=== PATIENT | male | born 1950 | race Caucasian/White ===

== ENCOUNTER 2019-10-07 08:33 | Inpatient (IN) | payer BC, MEDICARE ==
[~2019-10-07] VITALS: Ht 185.4 cm; Wt 90.9 kg
[2019-10-07 09:02] LABS: BASOPHILS # (AUTO) 0.1 X10'3 (0-0.2); EOSINOPHILS # (AUTO) 0.2 X10'3 (0-0.9); EOSINOPHILS % (AUTO) 2.4 % (0-6); HEMATOCRIT 45.2 % (42.0-52.0); HEMOGLOBIN 15.7 g/dl (14.0-17.9); LYMPHOCYTES # (AUTO) 1.5 X10'3 (1.1-4.8); LYMPHOCYTES % (AUTO) 23.6 % (21-51); MEAN CORPUSCULAR HEMOGLOBIN 32.2 PG (27.0-31.0); MEAN CORPUSCULAR HGB CONC 34.8 g/dL (33.0-36.5); MEAN CORPUSCULAR VOLUME 92.6 FL (78-98); MEAN PLATELET VOLUME 7.8 FL (7.4-10.4); MONOCYTES # (AUTO) 0.5 X10'3 (0-0.9); MONOCYTES % (AUTO) 8.1 % (2-12); NEUTROPHILS # (AUTO) 4.1 X10'3 (1.8-7.7); NEUTROPHILS % (AUTO) 64.9 % (42-75); PLATELET COUNT 256 X10'3 (140-440); RED BLOOD COUNT 4.89 X10'6 (4.70-6.10); RED CELL DISTRIBUTION WIDTH 13.4 % (11.5-14.5); WHITE BLOOD COUNT 6.3 X10'3 (4.5-11.0)
[2019-10-07] MEDS ORDERED: aspirin 325mg tablet PO ONE (09:10)
[2019-10-07 09:20] LABS: ALANINE AMINOTRANSFERASE 31 U/L (12-78); ALBUMIN 4.3 G/DL (3.4-5.0); ALKALINE PHOSPHATASE 139 IU/L (46-116); ANION GAP 11 (8-16); ASPARTATE AMINO TRANSFERASE 22 U/L (10-37); BILIRUBIN,TOTAL 0.4 MG/DL (0.1-1.0); BLOOD UREA NITROGEN 16 MG/DL (7-18); BUN/CREATININE RATIO 14.2 (5.4-32.0); CALCIUM 9.3 MG/DL (8.5-10.1); CHLORIDE 97 MMOL/L (99-107); CREATININE 1.13 MG/DL (0.60-1.10); GLUCOSE 343 MG/DL (70-104); POTASSIUM 4.1 MMOL/L (3.5-5.1); SODIUM 133 MMOL/L (135-145); TOTAL CARBON DIOXIDE 25.4 MMOL/L (24-32); TOTAL PROTEIN 8.8 G/DL (6.4-8.2); eGFR 65 ML/MIN
[2019-10-07 09:22] LABS: TROPONIN I < 0.04 NG/ML (0.0-0.05)
[2019-10-07] MEDS ORDERED: iohexol 350MG/ML 100ml bottle IV ONE (09:33)
[2019-10-07 09:50] LABS: ETHANOL < 0.010 GM/DL (0.0-0.010)
--- NOTE | 2019-10-07 09:52 | NUR ---
stefani wolfe rn for break; pt just back from ct.
--- NOTE | 2019-10-07 10:20 | NUR ---
Neuro tele consult in progress
--- NOTE | 2019-10-07 10:31 | NUR ---
Anibal forbes in [facility] - 10/07/19 at 1032 by ILIANA STROKE ALERT CALLED OF BY AT [phone]
--- NOTE | 2019-10-07 10:32 | NUR ---
THEODORA ALERT CALLED OFF BY AT [phone]
[2019-10-07 10:50] LABS: CLARITY,URINE CLEAR (Clear); COLOR,URINE YELLOW (Yellow); GLUCOSE, URINE >=1000 mg/dl (Neg); KETONES,URINE NEGATIVE (Neg); LEUKOCYTE ESTERASE ,URINE NEGATIVE (Neg); NITRITES, URINE NEGATIVE (Neg); OCCULT BLOOD,URINE NEGATIVE (Neg); PH,URINE 5.5 (4.8-8.0); PROTEIN,URINE NEGATIVE (Neg); UROBILINOGEN,URINE 0.2 E.U/dL (0.2-1.0)
[2019-10-07 10:56] LABS: URINE AMPHETAMINE SCREEN NEGATIVE (Neg); URINE BARBITUATE SCREEN NEGATIVE (Neg); URINE BENZODIAZEPINES SCREEN NEGATIVE (Neg); URINE CANNABINOID SCREEN NEGATIVE (Neg); URINE COCAINE SCREEN NEGATIVE (Neg); URINE METHADONE SCREEN NEGATIVE (Neg); URINE OPIATE SCREEN NEGATIVE (Neg); URINE PHENCYCLIDINE SCREEN NEGATIVE (Neg)
[2019-10-07 10:58] LABS: UA COLLECTION TYPE CLN CATCH MIDSTREAM
[2019-10-07 11:10] LABS: BACTERIA,URINE FEW /HPF (Neg); RBC,URINE NONE SEEN /HPF (0-2); SQUAMOUS EPITHELIAL CELL,UR FEW /LPF (FEW); WBC,URINE 0-4 /HPF (0-4)
[2019-10-07] MEDS ORDERED: magnesium 4gm in 100ml NS 100 ML IV PRN (11:30)
[2019-10-07] MEDS ORDERED: dextrose ORAL solution 15 GM/59 ML bottle PO PRN ×2 (11:30)
[2019-10-07] MEDS ORDERED: dextrose 50%-water 50ml dispensing syringe IV PRN ×2 (11:30)
[2019-10-07] MEDS ORDERED: potassium CL 10mEq/100ml bag 100 ML IV PRN ×2 (11:30)
[2019-10-07] MEDS ORDERED: ondansetron/PF 4mg/2ml inj IV PRN (11:30)
[2019-10-07] MEDS ORDERED: magnesium Cl slow-release 64mg tablet PO PRN (11:30)
[2019-10-07] MEDS ORDERED: MESSAGE TO PHARMACY PO ONE (11:30)
[2019-10-07] MEDS ORDERED: potassium Cl 20 mEq SR tablet PO PRN ×2 (11:30)
[2019-10-07] MEDS ORDERED: glucagon, human recombinant 1mg kit SUBCUT PRN (11:30)
[2019-10-07] MEDS ORDERED: acetaminophen 325mg tablet PO PRN (11:30)
[2019-10-07] MEDS ORDERED: magnesium 2GM in 50ml NS 50 ML IV PRN (11:30)
[2019-10-07] MEDS ORDERED: NO HOME MEDS (12:24)
--- NOTE | 2019-10-07 13:00 | NUR ---
pressure dispatcher took report, pt arrived at 1310, tucked in, vitals, assessment
[2019-10-07 14:15] VITALS: BP 175/134
--- NOTE | 2019-10-07 14:50 | NUR ---
DM Consult: Pt meets hyperglycemia protocol Glu 343 on admit w/ A1C 10.0. Pt has no hx DM in EMR. REAGAN liu/w RN who reports pt has not seen MD in 10 years and is not aware of new DM DX. Pending official DM DX review by MD; unable to provide written/verbal new DM ed until diagnosis reviewed by MD. REAGAN liu/ingris RN who is aware. Pt admit w/ possible TIA though could be Glu complications as well per RN today. Placed on carb controlled/heart healthy diet pending PO hx given new admit and no lipid panel at this time. Pt will need thorough new DM ed once stable and aware of new DX prior to discharge. Will continue to monitor. Rec: 1. continue carb controlled/heart healthy diet 2. monitor for ONS needs 3. bowel care per rx 4. scaled wt 5. Written/verbal new DM ed once stable s/p official new DM DX review by Addendum: 10/07/19 at [address] Amended: Links added.
--- NOTE | 2019-10-07 18:23 | NUR ---
Problems reprioritized. Patient report given, questions answered & plan of care reviewed with Julissa Noyola
[2019-10-07] MEDS: insulin Lispro (HumaLOG) vial - multi-dose SQ SCH (18:54)
[2019-10-07 20:00] VITALS: BP 160/84
[2019-10-07] MEDS: docusate sod 100mg capsule PO SCH (20:00)
[2019-10-07] MEDS: K and/or MAG REPLACEMENT MC SCH (20:00)
[2019-10-07] MEDS: atorvastatin 20mg tablet PO SCH (21:14)
[2019-10-07] MEDS: insulin glargine (Lantus) pen - multi-dose SQ SCH (21:19)
[2019-10-08] VITALS (8 sets, daily range): BP systolic 129–168; BP diastolic 69–107
--- NOTE | 2019-10-08 06:00 | NUR ---
Patient in room ORTHO 4015. I have received report from Julissa Noyola and had the opportunity to ask questions and assume patient care.
--- NOTE | 2019-10-08 06:32 | NUR ---
Problems reprioritized. Patient report given, questions answered & plan of care reviewed with EPHRAIM Longo.
[2019-10-08 06:39] LABS: BASOPHILS % (AUTO) 0.9 % (0-1); EOSINOPHILS # (AUTO) 0.2 X10'3 (0-0.9); EOSINOPHILS % (AUTO) 3.5 % (0-6); HEMATOCRIT 40.4 % (42.0-52.0); HEMOGLOBIN 14.3 g/dl (14.0-17.9); LYMPHOCYTES # (AUTO) 1.1 X10'3 (1.1-4.8); LYMPHOCYTES % (AUTO) 21.2 % (21-51); MEAN CORPUSCULAR HEMOGLOBIN 32.5 PG (27.0-31.0); MEAN CORPUSCULAR HGB CONC 35.3 g/dL (33.0-36.5); MEAN CORPUSCULAR VOLUME 92.2 FL (78-98); MEAN PLATELET VOLUME 7.8 FL (7.4-10.4); MONOCYTES # (AUTO) 0.5 X10'3 (0-0.9); MONOCYTES % (AUTO) 8.6 % (2-12); NEUTROPHILS # (AUTO) 3.5 X10'3 (1.8-7.7); NEUTROPHILS % (AUTO) 65.8 % (42-75); PLATELET COUNT 231 X10'3 (140-440); RED BLOOD COUNT 4.38 X10'6 (4.70-6.10); RED CELL DISTRIBUTION WIDTH 13.5 % (11.5-14.5); WHITE BLOOD COUNT 5.3 X10'3 (4.5-11.0)
[2019-10-08 06:54] LABS: ALBUMIN 3.6 G/DL (3.4-5.0); ANION GAP 8 (8-16); BLOOD UREA NITROGEN 16 MG/DL (7-18); BUN/CREATININE RATIO 15.8 (5.4-32.0); CALCIUM 9.1 MG/DL (8.5-10.1); CHLORIDE 102 MMOL/L (99-107); CHOL/HDL RATIO 7.5 (0.00-4.99); CHOLESTEROL 241 MG/DL (0-200); CREATININE 1.01 MG/DL (0.60-1.10); GLUCOSE 236 MG/DL (70-104); HDL CHOLESTEROL 32 MG/DL (35-60); LDL CHOLESTEROL 167 MG/DL (50-100); MAGNESIUM 1.9 MG/DL (1.5-2.4); POTASSIUM 4.1 MMOL/L (3.5-5.1); SODIUM 136 MMOL/L (135-145); TOTAL CARBON DIOXIDE 26.3 MMOL/L (24-32); TRIGLYCERIDES 262 MG/DL (20-135); eGFR 74 ML/MIN
[2019-10-08] MEDS: K and/or MAG REPLACEMENT MC SCH ×2 (08:00→19:56)
[2019-10-08] MEDS: insulin Lispro (HumaLOG) vial - multi-dose SQ SCH ×3 (09:02→19:09)
[2019-10-08] MEDS: docusate sod 100mg capsule PO SCH ×2 (09:07→20:00)
[2019-10-08] MEDS: aspirin 81mg tab.chew PO SCH (09:07)
[2019-10-08] MEDS ORDERED: ASPI-1265 PO (10:41)
[2019-10-08] MEDS ORDERED: METF500T PO (10:41)
[2019-10-08] MEDS ORDERED: ATOR20TA66 PO (10:41)
--- NOTE | 2019-10-08 11:23 | NUR ---
Call received from [facility], off site radiology group asking to speak with pt's hospitalist. Will page hospitalist gabriele. Addendum: 10/08/19 at 1125 by Qing Bee RN PAGER ID: [phone] MESSAGE: Qing Covington on ortho, for Mr. Rob in [id number], please call Dr. Weber at [facility] re: the MRI, gabriele, critical finding,
--- NOTE | 2019-10-08 11:29 | NUR ---
received call from hospitalist regarding [facility]AD/MRI, orders received
[2019-10-08] MEDS ORDERED: clopidogrel 75mg tablet PO SCH (11:30)
--- NOTE | 2019-10-08 18:18 | NUR ---
Problems reprioritized. Patient report given, questions answered & plan of care reviewed with Julissa Noyola
[2019-10-08] MEDS: atorvastatin 20mg tablet PO SCH (19:58)
[2019-10-08] MEDS: insulin glargine (Lantus) pen - multi-dose SQ SCH (21:03)
[2019-10-09 02:00] VITALS: BP 153/78
[2019-10-09 06:00] VITALS: BP 136/85
[2019-10-09 06:29] LABS: ALBUMIN 3.5 G/DL (3.4-5.0); ANION GAP 7 (8-16); BLOOD UREA NITROGEN 18 MG/DL (7-18); CALCIUM 9.4 MG/DL (8.5-10.1); CHLORIDE 103 MMOL/L (99-107); CREATININE 1.06 MG/DL (0.60-1.10); GLUCOSE 184 MG/DL (70-104); MAGNESIUM 1.9 MG/DL (1.5-2.4); POTASSIUM 3.7 MMOL/L (3.5-5.1); SODIUM 138 MMOL/L (135-145); TOTAL CARBON DIOXIDE 28.5 MMOL/L (24-32); eGFR 70 ML/MIN
--- NOTE | 2019-10-09 06:30 | NUR ---
Problems reprioritized. Patient report given, questions answered & plan of care reviewed with EPHRAIM Gagnon.
[2019-10-09 06:43] LABS: BASOPHILS % (AUTO) 0.8 % (0-1); EOSINOPHILS # (AUTO) 0.2 X10'3 (0-0.9); EOSINOPHILS % (AUTO) 4.1 % (0-6); HEMATOCRIT 40.2 % (42.0-52.0); LYMPHOCYTES # (AUTO) 1.2 X10'3 (1.1-4.8); MEAN CORPUSCULAR HEMOGLOBIN 31.9 PG (27.0-31.0); MEAN CORPUSCULAR HGB CONC 34.7 g/dL (33.0-36.5); MEAN CORPUSCULAR VOLUME 91.9 FL (78-98); MEAN PLATELET VOLUME 7.6 FL (7.4-10.4); MONOCYTES # (AUTO) 0.5 X10'3 (0-0.9); MONOCYTES % (AUTO) 10.3 % (2-12); NEUTROPHILS # (AUTO) 3.2 X10'3 (1.8-7.7); NEUTROPHILS % (AUTO) 61.8 % (42-75); PLATELET COUNT 240 X10'3 (140-440); RED BLOOD COUNT 4.38 X10'6 (4.70-6.10); RED CELL DISTRIBUTION WIDTH 13.2 % (11.5-14.5); WHITE BLOOD COUNT 5.2 X10'3 (4.5-11.0)
[2019-10-09] MEDS ORDERED: levoTHYROXINE 25mcg tablet PO SCH (07:00)
[2019-10-09] MEDS: docusate sod 100mg capsule PO SCH (07:37)
[2019-10-09] MEDS: aspirin 81mg tab.chew PO SCH (07:37)
[2019-10-09] MEDS: K and/or MAG REPLACEMENT MC SCH (07:43)
[2019-10-09] MEDS ORDERED: clopidogrel 75mg tablet PO SCH (08:00)
[2019-10-09] MEDS: insulin Lispro (HumaLOG) vial - multi-dose SQ SCH (09:02)
[2019-10-09] MEDS ORDERED: CLOP75TA15 PO (10:24)
--- NOTE | 2019-10-09 12:06 | NUR ---
PAGER ID: [phone] MESSAGE: [id number] Pk Ricks- patient has not been given the diagnosis of Diabetes, also TSH was 11.51 started on synthroid today, would you like to D/C with synthroid? Chelsi [phone]
[2019-10-09] MEDS ORDERED: LEVO25TA2 PO (12:20)
--- NOTE | 2019-10-09 12:41 | NUR ---
Patient discharge instructions were given to patient and daughter. Discharge packet and diabetic teachings were provided. A written prescription for a glucometer, strips, and lancets were handed to patient.
--- NOTE | 2019-10-09 13:11 | NUR ---
F/u for DM consult: Pt seen at bedside states he has not been informed about new DM dx. D/w RN who reports pt has been provided with education on blood sugar management (diabetes survival skills handout) without official DM diagnosis by MD. EPHRAIM d/w who then provided pt with the official dx. RD visited pt at beside again and provided written diabetes handout and ADA T2DM packet with verbal review. Pt states he drinks a lot of regular soda each day however is willing to decrease soda consumption and transition to diet soda for lower sugar intake. RD reviewed meal frequency, consistent CHO intake, foods that contain carbohydrates, and reading the nutrition facts label. Pt verbalized understanding and able to provide teach back method however was a little forgetful at times. RD believes pt more focused on possible discharge today. Pt denies known family hx of diabetes however states he thinks he knew he had diabetes prior to this dx. Pt verbalizes understanding of the importance of checking his BG levels and taking medications per rx and states he is going to work on getting a PCP established following discharge. RN d/w need for glucometer rx. Pt states he has a family member that is a nurse and is willing to work with her for additional help with diabetes management. Pt provided with RD contact information and encouraged to reach out even following discharge. Will remain available. Addendum: 10/09/19 at [address] Amended: Links added.
--- NOTE | 2019-10-09 13:20 | NUR ---
Patient ready for D/C PIV removed cannula intact. All belongings gathered and sent home with patient.
[2019-10-09] MEDS ORDERED: LISI-604 PO (14:01)
--- NOTE | 2019-10-09 14:10 | NUR ---
MD Houston called and asked for me to add lisinopril onto the med list after patient was discharged. Called patients daughter Claudia and informed her of the medication added. Will inform her father of the change. Medication was added and escripted to earnestine.
== END 2019-10-09 13:20 | disposition home or self-care (01) | DRG 64 ==
LOC: ER 08:33 → ED HOLD 11:29 → ORTHO 4S 13:10
PROVIDERS: ADMIT Internal Medicine; ATTEND Internal Medicine
PROC: B3251ZZ Computerized Tomography (CT Scan) of Bilateral Common Carotid Arteries using Low Osmolar Contrast (ICD-10-PCS; principal; 2019-10-07)
PROC: B32G1ZZ Computerized Tomography (CT Scan) of Bilateral Vertebral Arteries using Low Osmolar Contrast (ICD-10-PCS; 2019-10-07)
PROC: B3281ZZ Computerized Tomography (CT Scan) of Bilateral Internal Carotid Arteries using Low Osmolar Contrast (ICD-10-PCS; 2019-10-07)
DX: I63.9 Cerebral infarction, unspecified (principal); N17.0 Acute kidney failure with tubular necrosis; E03.9 Hypothyroidism, unspecified; R94.6 Abnormal results of thyroid function studies; E11.65 Type 2 diabetes mellitus with hyperglycemia; E86.0 Dehydration; I10 Essential (primary) hypertension; R29.703 NIHSS score 3; Z79.82 Long term (current) use of aspirin; Z79.84 Long term (current) use of oral hypoglycemic drugs
CPT/HCPCS: 36415; 70450; 70496; 70498; 70544; 70551; 71045; 80048; 80053; 80061; 80305; 80320; 81001; 82948; 83036; 83735; 84439; 84443; 84484; 85025; 87081; 93005; 93306; 97161; 97530; 99291; G0378; J1815; Q9967

== ENCOUNTER 2019-10-18 16:12 | Inpatient (IN) | payer MEDICARE, BC ==
[~2019-10-18] VITALS: Ht 185.4 cm; Wt 90.9 kg
[~2019-10-18 16:12] MED LIST: ASPI-1265 PO; ATOR20TA66 PO; CLOP75TA15 PO; LEVO25TA2 PO; LISI-604 PO; METF500T PO; NO HOME MEDS
[2019-10-18 17:12] LABS: BASOPHILS # (AUTO) 0.1 X10'3 (0-0.2); BASOPHILS % (AUTO) 0.8 % (0-1); EOSINOPHILS # (AUTO) 0.1 X10'3 (0-0.9); EOSINOPHILS % (AUTO) 0.5 % (0-6); HEMATOCRIT 42.7 % (42.0-52.0); HEMOGLOBIN 14.5 g/dl (14.0-17.9); LYMPHOCYTES # (AUTO) 1.2 X10'3 (1.1-4.8); LYMPHOCYTES % (AUTO) 9.7 % (21-51); MEAN CORPUSCULAR HEMOGLOBIN 31.5 PG (27.0-31.0); MEAN CORPUSCULAR VOLUME 92.7 FL (78-98); MEAN PLATELET VOLUME 7.9 FL (7.4-10.4); MONOCYTES # (AUTO) 0.9 X10'3 (0-0.9); MONOCYTES % (AUTO) 7.4 % (2-12); NEUTROPHILS # (AUTO) 10.3 X10'3 (1.8-7.7); NEUTROPHILS % (AUTO) 81.6 % (42-75); PLATELET COUNT 358 X10'3 (140-440); RED BLOOD COUNT 4.61 X10'6 (4.70-6.10); RED CELL DISTRIBUTION WIDTH 13.3 % (11.5-14.5); WHITE BLOOD COUNT 12.7 X10'3 (4.5-11.0)
[2019-10-18 17:25] LABS: PARTIAL THROMBOPLASTIN TIME 26 SECONDS (22-32)
[2019-10-18 17:29] LABS: ALANINE AMINOTRANSFERASE 34 U/L (12-78); ALBUMIN 4.1 G/DL (3.4-5.0); ALBUMIN/GLOBULIN RATIO 0.8 (1.1-1.5); ALKALINE PHOSPHATASE 109 IU/L (46-116); ANION GAP 18 (8-16); ASPARTATE AMINO TRANSFERASE 32 U/L (10-37); BILIRUBIN,TOTAL 0.7 MG/DL (0.1-1.0); BLOOD UREA NITROGEN 17 MG/DL (7-18); BUN/CREATININE RATIO 16.7 (5.4-32.0); CALCIUM 9.4 MG/DL (8.5-10.1); CHLORIDE 101 MMOL/L (99-107); CREATININE 1.02 MG/DL (0.60-1.10); GLUCOSE 175 MG/DL (70-104); POTASSIUM 3.4 MMOL/L (3.5-5.1); SODIUM 138 MMOL/L (135-145); TOTAL CARBON DIOXIDE 19.5 MMOL/L (24-32); TOTAL PROTEIN 9.1 G/DL (6.4-8.2); eGFR 73 ML/MIN
[2019-10-18 17:33] LABS: TROPONIN I < 0.04 NG/ML (0.0-0.05)
[2019-10-18] MEDS ORDERED: iohexol 350MG/ML 100ml bottle IV ONE (17:53)
[2019-10-18] MEDS: MESSAGE TO NURSING PO SCH (18:00)
[2019-10-18] MEDS ORDERED: acetaminophen 325mg tablet PO PRN ×2 (20:30)
[2019-10-18] MEDS ORDERED: HYDROcodone/acetaminophen 5mg/325mg tablet PO PRN (20:30)
[2019-10-18] MEDS ORDERED: magnesium Cl slow-release 64mg tablet PO PRN (20:30)
[2019-10-18] MEDS ORDERED: magnesium 4gm in 100ml NS 100 ML IV PRN (20:30)
[2019-10-18] MEDS ORDERED: magnesium hydroxide 30ml (MOM) UD suspension PO PRN (20:30)
[2019-10-18] MEDS ORDERED: acetaminophen 650mg rectal suppository RC PRN (20:30)
[2019-10-18] MEDS ORDERED: mag hydrox/Alum hydrox/simeth 30ml oral suspension PO PRN (20:30)
[2019-10-18] MEDS ORDERED: HYDROcodone/acetaminophen 10/325mg tab PO PRN (20:30)
[2019-10-18] MEDS ORDERED: magnesium 2GM in 50ml NS 50 ML IV PRN (20:30)
[2019-10-18] MEDS ORDERED: potassium CL 10mEq/100ml bag 100 ML IV PRN (20:30)
[2019-10-18] MEDS ORDERED: potassium Cl 20 mEq SR tablet PO PRN ×2 (20:30)
[2019-10-18] MEDS ORDERED: ondansetron/PF 4mg/2ml inj IV PRN (20:30)
[2019-10-18] MEDS ORDERED: metoclopramide 5 mg/ml inj IV PRN (20:30)
[2019-10-18] MEDS ORDERED: bisacodyl 10mg suppository rectal RC PRN (20:30)
[2019-10-18] MEDS: normal saline 1000ml 1,000 ML IV SCH (21:01)
[2019-10-18] MEDS ORDERED: piperacillin/tazo 3.375gm/50ml 50 ML IV ONE (21:35)
[2019-10-18] MEDS ORDERED: pantoprazole 40 MG vial IV ONE (21:35)
[2019-10-18 22:10] VITALS: BP 189/100
[2019-10-18 23:00] VITALS: BP 184/90
--- NOTE | 2019-10-18 23:00 | NUR ---
pt found with large amount of coffee ground emesis from mouth and nose,pt alert,v/s checked and recorded.denies pain.Informed no new orders continue to monitor pt. met hyperglycemia protocol bs 251 mmhg no tx needed monitor bs every 6 hrs pt is NPO per Dr. Gil.
[2019-10-19 02:00] VITALS: BP 160/87
[2019-10-19] MEDS: piperacillin/tazo 3.375gm/50ml 50 ML IV SCH ×3 (04:15→20:17)
[2019-10-19] MEDS ORDERED: MESSAGE TO PHARMACY PO ONE (04:50)
[2019-10-19] MEDS ORDERED: dextrose ORAL solution 15 GM/59 ML bottle PO PRN ×2 (04:50)
[2019-10-19] MEDS ORDERED: glucagon, human recombinant 1mg kit SUBCUT PRN (04:50)
[2019-10-19] MEDS ORDERED: dextrose 50%-water 50ml dispensing syringe IV PRN ×2 (04:50)
[2019-10-19 06:00] VITALS: BP 164/80
[2019-10-19] MEDS: normal saline 1000ml 1,000 ML IV SCH (06:29)
[2019-10-19 07:17] LABS: CHOL/HDL RATIO 2.8 (0.00-4.99); CHOLESTEROL 115 MG/DL (0-200); HDL CHOLESTEROL 41 MG/DL (35-60); LDL CHOLESTEROL 59 MG/DL (50-100); MAGNESIUM 1.7 MG/DL (1.5-2.4); TRIGLYCERIDES 55 MG/DL (20-135)
[2019-10-19] MEDS: levoTHYROXINE 25mcg tablet PO SCH (07:30)
[2019-10-19] MEDS: K and/or MAG REPLACEMENT MC SCH ×2 (08:00→20:00)
[2019-10-19] MEDS ORDERED: aspirin 81mg tablet.DR PO SCH (08:00)
[2019-10-19] MEDS ORDERED: clopidogrel 75mg tablet PO SCH (08:00)
[2019-10-19] MEDS: clopidogrel 75mg tablet PO SCH (08:00)
[2019-10-19] MEDS: aspirin 81mg tab.chew PO SCH (08:30)
--- NOTE | 2019-10-19 09:47 | NUR ---
Pt with A1c 10.0%, newly diagnosed at last admit and provided with written and verbal DM education with REAGAN contact information 10/08. No further education warranted at this time. Pt s/p BSS this morning with reclucita NPO and reassess d/t pt with very weak swallow and unable to move bolus per ST note. Recommend diet advancement to heart healthy CHO controlled as medically cleared by ST. Will continue to follow. Addendum: 10/19/19 at [address] Amended: Links added.
[2019-10-19 10:00] VITALS: BP 137/75
[2019-10-19] MEDS: enoxaparin 40mg/0.4ml syringe SUBCUT SCH (12:53)
[2019-10-19] MEDS: potassium CL 10mEq/100ml bag 100 ML IV PRN (13:35)
[2019-10-19 14:00] VITALS: BP 148/75
--- NOTE | 2019-10-19 16:22 | NUR ---
Return from MRI via [facility]. Dr Guerrero notified. Gretchen Neuro nurse here.
--- NOTE | 2019-10-19 17:24 | NUR ---
Tele Neuro done with Mallory - daughter on speaker phone with Gretchen stroke RN. Dr Villatoro recommend transfer to higher level of care. Dr Villatoro to call Dr Guerrero.
[2019-10-19 18:00] VITALS: BP 165/82
[2019-10-19] MEDS: MESSAGE TO NURSING PO SCH (18:00)
--- NOTE | 2019-10-19 18:30 | NUR ---
Patient in room ORTHO 4013. I have received report from Lola YE and had the opportunity to ask questions and assume patient care.
[2019-10-19] MEDS ORDERED: insulin glargine (Lantus) pen - multi-dose SQ ONE (19:15)
--- NOTE | 2019-10-19 19:22 | NUR ---
Confirmed with MD diabetes protocol for tonight. Accu checks Q6, Cover pt with 4 units of Lantus only, no short acting tonight as Pt is NPO
[2019-10-19] MEDS: atorvastatin 20mg tablet PO SCH (20:00)
[2019-10-19] MEDS: insulin glargine (Lantus) pen - multi-dose SQ SCH (21:00)
[2019-10-19 21:06] LABS: BASOPHILS % (AUTO) 0.2 % (0-1); EOSINOPHILS % (AUTO) 0 % (0-6); HEMATOCRIT 39.2 % (42.0-52.0); HEMOGLOBIN 13.4 g/dl (14.0-17.9); LYMPHOCYTES # (AUTO) 1.1 X10'3 (1.1-4.8); LYMPHOCYTES % (AUTO) 7.1 % (21-51); MEAN CORPUSCULAR HEMOGLOBIN 32.2 PG (27.0-31.0); MEAN CORPUSCULAR HGB CONC 34.1 g/dL (33.0-36.5); MEAN CORPUSCULAR VOLUME 94.3 FL (78-98); MONOCYTES # (AUTO) 1.3 X10'3 (0-0.9); MONOCYTES % (AUTO) 8.5 % (2-12); NEUTROPHILS # (AUTO) 13.1 X10'3 (1.8-7.7); NEUTROPHILS % (AUTO) 84.2 % (42-75); PLATELET COUNT 354 X10'3 (140-440); RED BLOOD COUNT 4.15 X10'6 (4.70-6.10); RED CELL DISTRIBUTION WIDTH 13.6 % (11.5-14.5); WHITE BLOOD COUNT 15.6 X10'3 (4.5-11.0)
[2019-10-19 21:21] LABS: ALANINE AMINOTRANSFERASE 24 U/L (12-78); ALBUMIN 3.4 G/DL (3.4-5.0); ALBUMIN/GLOBULIN RATIO 0.8 (1.1-1.5); ALKALINE PHOSPHATASE 92 IU/L (46-116); ANION GAP 12 (8-16); ASPARTATE AMINO TRANSFERASE 14 U/L (10-37); BILIRUBIN,TOTAL 0.6 MG/DL (0.1-1.0); BLOOD UREA NITROGEN 26 MG/DL (7-18); BUN/CREATININE RATIO 18.8 (5.4-32.0); CHLORIDE 105 MMOL/L (99-107); CREATININE 1.38 MG/DL (0.60-1.10); GLUCOSE 252 MG/DL (70-104); POTASSIUM 3.6 MMOL/L (3.5-5.1); SODIUM 140 MMOL/L (135-145); TOTAL CARBON DIOXIDE 23.5 MMOL/L (24-32); TOTAL PROTEIN 7.5 G/DL (6.4-8.2); eGFR 51 ML/MIN
[2019-10-19 22:00] VITALS: BP 163/75
[2019-10-20 02:00] VITALS: BP 161/77
[2019-10-20] MEDS: normal saline 1000ml 1,000 ML IV SCH ×3 (02:29→14:25)
[2019-10-20] MEDS: piperacillin/tazo 3.375gm/50ml 50 ML IV SCH ×3 (05:21→20:07)
[2019-10-20 06:00] VITALS: BP 174/85
[2019-10-20 06:11] LABS: BASOPHILS % (AUTO) 0.2 % (0-1); EOSINOPHILS % (AUTO) 0 % (0-6); HEMATOCRIT 38.1 % (42.0-52.0); LYMPHOCYTES # (AUTO) 0.7 X10'3 (1.1-4.8); LYMPHOCYTES % (AUTO) 5.2 % (21-51); MEAN CORPUSCULAR HEMOGLOBIN 31.8 PG (27.0-31.0); MEAN CORPUSCULAR HGB CONC 34.2 g/dL (33.0-36.5); MEAN CORPUSCULAR VOLUME 93.1 FL (78-98); MEAN PLATELET VOLUME 7.9 FL (7.4-10.4); MONOCYTES # (AUTO) 1.1 X10'3 (0-0.9); NEUTROPHILS # (AUTO) 11.6 X10'3 (1.8-7.7); NEUTROPHILS % (AUTO) 86.6 % (42-75); PLATELET COUNT 361 X10'3 (140-440); RED CELL DISTRIBUTION WIDTH 13.4 % (11.5-14.5); WHITE BLOOD COUNT 13.4 X10'3 (4.5-11.0)
--- NOTE | 2019-10-20 06:20 | NUR ---
received report from christine ga
[2019-10-20 06:31] LABS: ALANINE AMINOTRANSFERASE 23 U/L (12-78); ALBUMIN 3.3 G/DL (3.4-5.0); ALBUMIN/GLOBULIN RATIO 0.8 (1.1-1.5); ALKALINE PHOSPHATASE 85 IU/L (46-116); ANION GAP 15 (8-16); ASPARTATE AMINO TRANSFERASE 11 U/L (10-37); BILIRUBIN,TOTAL 0.5 MG/DL (0.1-1.0); BLOOD UREA NITROGEN 26 MG/DL (7-18); BUN/CREATININE RATIO 22.4 (5.4-32.0); CALCIUM 9.3 MG/DL (8.5-10.1); CHLORIDE 107 MMOL/L (99-107); CREATININE 1.16 MG/DL (0.60-1.10); GLUCOSE 249 MG/DL (70-104); MAGNESIUM 2.2 MG/DL (1.5-2.4); POTASSIUM 3.4 MMOL/L (3.5-5.1); SODIUM 142 MMOL/L (135-145); TOTAL CARBON DIOXIDE 20.4 MMOL/L (24-32); TOTAL PROTEIN 7.2 G/DL (6.4-8.2); eGFR 63 ML/MIN
--- NOTE | 2019-10-20 06:36 | NUR ---
Problems reprioritized. Patient report given, questions answered & plan of care reviewed with Karuna YE.
[2019-10-20] MEDS: enoxaparin 40mg/0.4ml syringe SUBCUT SCH (07:17)
[2019-10-20] MEDS: K and/or MAG REPLACEMENT MC SCH (07:27)
[2019-10-20] MEDS: levoTHYROXINE 25mcg tablet PO SCH (07:30)
[2019-10-20] MEDS ORDERED: thiamine inj. 500 MG in normal saline 100ml IV soln 100 ML IV SCH (08:00)
[2019-10-20] MEDS ORDERED: thiamine 100mg/ml 2ml inj. IV SCH (08:00)
[2019-10-20] MEDS: aspirin 81mg tab.chew PO SCH (08:39)
[2019-10-20] MEDS: clopidogrel 75mg tablet PO SCH (08:40)
[2019-10-20] MEDS: potassium CL 10mEq/100ml bag 100 ML IV PRN ×4 (08:43→17:07)
--- NOTE | 2019-10-20 08:49 | NUR ---
SCANNER DID NOT SCAN ALL MEDS INTO [employer], CHECKED ALL MEDS PRIOR TO ADMIN
[2019-10-20 10:00] VITALS: BP 168/78
--- NOTE | 2019-10-20 10:28 | NUR ---
RT TO BEDSIDE FOR EVAL AND TX. PER RN PT WAS DESATTING ON 2LPM. UPON MY ARRIVAL PT IS LAYING <30% ALMOST FLAT. SLURPING ON THICKEN PT HAS AUDIBLE COARSE RHONCHI I&E. MY ASSUMPTION IS THAT PT HAS ASPERATED. PT PLACED IN HIGHER SITTING POSITION, COACHED ON FLUTTER AND COUGH. ALL BEVERAGES AND FOOD HAVE BEEN REMOVED FROM PT [facility] . RN ADVISED THAT PT REALLY SHOULD HAVE ASSISTANCE WITH EATING AND DRINKING TO WHICH I WOULD AGREE. Addendum: 10/20/19 at 1033 by Bella Salcedo RT Amended: Links added.
--- NOTE | 2019-10-20 14:26 | NUR ---
md aware of pt blood sugar, no new orders at this time
--- NOTE | 2019-10-20 14:51 | NUR ---
Student documentation: I have reviewed all interventions, assessments performed and documented by Rylee FLORENCE for [facility]. Student Medication Administration: All medication-pass' in the time frame from 1200- 1800, all medications were reviewed, dispensed, administered and documented per hospital policy by Rylee FLORENCE from [facility].
--- NOTE | 2019-10-20 14:52 | NUR ---
gave report to [facility] nurse
[2019-10-20] MEDS: insulin Lispro (HumaLOG) vial - multi-dose SQ SCH ×2 (17:59→21:13)
[2019-10-20 18:00] VITALS: BP 164/93
--- NOTE | 2019-10-20 18:26 | NUR ---
gave report to christine mcnair
[2019-10-20] MEDS ORDERED: GADOTERATE MEGLUMINE 7.5 MMOL/15 ML VIAL IV ONE (19:43)
[2019-10-20] MEDS: atorvastatin 20mg tablet PO SCH (19:48)
[2019-10-20] MEDS: insulin glargine (Lantus) pen - multi-dose SQ SCH (21:12)
--- NOTE | 2019-10-20 21:26 | NUR ---
notified daughter Mallory phone [phone] of patient's pending transfer. requested that receiving facility contact her for any questions and for updates. Mallory's number passed to [facility]. gave Mallory the phone number of unit and room number. Unit 8 long, Room 845 bed 2. phone number [phone] extension to station [id number]. nurse to take report is Tosin.
--- NOTE | 2019-10-20 21:28 | NUR ---
1910 Moira from [facility] called with possible pick pulling machine tender time of 9am. will keep posted if find ride by air. 1916 Arline from [facility] contacted for possible rider. 1929 [facility] declined, Arline working on other options 1954 Iza from transfer station called: Millie evacuating hospital - will save pt's bed for now. 2010 Ashutosh from [facility] has fixed wing coming from [facility] to land at [facility] at 2119 and will take patient to [facility]. 2014 called Irasema at [facility] and cancelled ground transfer. 2014 called Iza at transfer station and updated on fixed wing transport arrival time. bed still available. 2054 - Tosin from [facility] called for report. Jelena in another room - ok to call back at [phone] x [phone] - able to get cabrera of children's lunchroom supervisor at [facility] Delia (phone not working for incoming calls). updated on transfer pending. 2119 - called Mallory daughter and notified of transfer pending. 2129 - Jelena calling report to Tosin at [facility]
[2019-10-20 22:00] VITALS: BP 157/80
--- NOTE | 2019-10-20 22:12 | NUR ---
patient transfered to [facility] via [facility] with belongings. paperwork given to crew. report given to crew by Jelena including last meds and blood sugar and notification complete to daughter Mallory.
--- NOTE | 2019-10-20 22:14 | NUR ---
notified Tosin at [facility] that patient has left the floor with [facility] fixed wing.
== END 2019-10-20 22:17 | disposition short-term general hospital (02) | DRG 64 ==
LOC: ER 16:12 → ED HOLD 20:29 → ORTHO 4S 22:05
PROVIDERS: ADMIT Family Medicine; ATTEND Family Medicine
PROC: BW291ZZ Computerized Tomography (CT Scan) of Head and Neck using Low Osmolar Contrast (ICD-10-PCS; principal; 2019-10-18)
DX: I63.9 Cerebral infarction, unspecified (principal); N17.0 Acute kidney failure with tubular necrosis; J69.0 Pneumonitis due to inhalation of food and vomit; G81.94 Hemiplegia, unspecified affecting left nondominant side; R47.02 Dysphasia; I12.9 Hypertensive chronic kidney disease with stage 1 through stage 4 chronic kidney disease, or unspecified chronic kidney disease; E78.5 Hyperlipidemia, unspecified; N18.9 Chronic kidney disease, unspecified; E11.22 Type 2 diabetes mellitus with diabetic chronic kidney disease; E03.9 Hypothyroidism, unspecified; E87.6 Hypokalemia; E86.0 Dehydration; Z20.828 Contact with and (suspected) exposure to other viral communicable diseases
CPT/HCPCS: 36415; 70450; 70496; 70498; 70551; 70552; 71045; 80053; 80061; 82948; 83036; 83735; 84484; 85025; 85610; 85730; 87081; 87635; 92508; 92616; 93005; 94667; 94668; 94760; 97110; 97112; 97162; 97530; 99285; A9575; C9113; G0378; J1650; J1815; J2543; J3411; J3480; J7030; Q9967

== ENCOUNTER 2019-10-26 14:51 | Inpatient (IN) | payer OTHER, MEDICARE ==
[~2019-10-26] VITALS: Ht 185.4 cm; Wt 76.0 kg
[~2019-10-26 14:51] MED LIST changes: -NO HOME MEDS
--- NOTE | 2019-10-26 18:25 | NUR ---
REC'D REPORT FROM CHARGE NURSE, PT IS IN ROUTE FROM [facility].
[2019-10-26 20:32] VITALS: BP 144/86
--- NOTE | 2019-10-26 20:39 | NUR ---
PT JUST ARRIVED FROM [facility], VIA AMS. DR DRAPER NOTIFIED. VS INITIATED PT IS STABLE . PT USES COMMUNICATION BOARD FOR SPEAKING PT IS A&oX4, UNABLE TO SPEAK. DR DRAPER ASSESSED. PT DOES NOT HAVE STAGE 1 ON COCCYX, PER 2 RN SKIN CHECK, PLACED OPTIFOAM PAD FOR PROPHYLACTIC. LARGE AREA OF HEALING BRUISE ON LEFT HIP. PIC IN CHART. SUCTION AT BEDSIDE. MRSA SWAB COLLECTED. COMMUNICATION BOARD PAGES ADDED FOR EASE.
[2019-10-26] MEDS ORDERED: [UNRECOGNIZED DRUG - CODE] (20:57)
[2019-10-26] MEDS ORDERED: mag hydrox/Alum hydrox/simeth 30ml oral suspension PO PRN (21:00)
[2019-10-26] MEDS ORDERED: acetaminophen 325mg tablet PO PRN (21:00)
[2019-10-26] MEDS ORDERED: ondansetron/PF 4mg/2ml inj IV PRN (21:00)
[2019-10-26] MEDS ORDERED: magnesium hydroxide 30ml (MOM) UD suspension PO PRN (21:00)
[2019-10-26] MEDS ORDERED: METO5TAB85 IV (21:01)
[2019-10-26] MEDS ORDERED: LISI-600 PO (21:01)
[2019-10-26] MEDS ORDERED: MELA1TAB28 PO (21:01)
[2019-10-26] MEDS ORDERED: glucagon, human recombinant 1mg kit SUBCUT PRN (21:05)
[2019-10-26] MEDS ORDERED: MESSAGE TO PHARMACY PO ONE (21:05)
[2019-10-26] MEDS ORDERED: dextrose 50%-water 50ml dispensing syringe IV PRN ×2 (21:05)
[2019-10-26] MEDS ORDERED: dextrose ORAL solution 15 GM/59 ML bottle PO PRN ×2 (21:05)
[2019-10-26] MEDS ORDERED: INSU100V13 SQ (21:06)
[2019-10-26] MEDS ORDERED: POLY119P2 NG (21:06)
[2019-10-26] MEDS ORDERED: LANTUS SQ (21:06)
[2019-10-26] MEDS ORDERED: GABA-530 PO (21:06)
[2019-10-26] MEDS ORDERED: dextrose ORAL solution 15 GM/59 ML bottle NG PRN ×2 (21:19→21:35)
[2019-10-26] MEDS ORDERED: magnesium hydroxide 30ml (MOM) UD suspension NG PRN (21:19)
[2019-10-26] MEDS ORDERED: mag hydrox/Alum hydrox/simeth 30ml oral suspension NG PRN (21:19)
[2019-10-26] MEDS ORDERED: gabapentin 100mg capsule PO PRN (21:20)
[2019-10-26] MEDS ORDERED: acetaminophen 325mg tablet NG PRN (21:20)
--- NOTE | 2019-10-26 22:20 | NUR ---
PT BG IS 208 AT 2220. THIS PT IS NPO, SO WE WILL MONITOR BG TIL MORNING.
[2019-10-26] MEDS: enoxaparin 30mg/0.3ml syringe SUBCUT SCH (23:50)
[2019-10-26] MEDS: normal saline 1000ml 1,000 ML IV SCH (23:54)
[2019-10-27] MEDS ORDERED: Melatonin 3mg tablet PO ONE
[2019-10-27] MEDS: metoclopramide 5 mg/ml inj IV PRN (00:40)
--- NOTE | 2019-10-27 01:16 | NUR ---
[facility] TO [facility]ESS [facility]. UNABLE TO GIVE.
[2019-10-27 02:00] VITALS: BP 148/87
--- NOTE | 2019-10-27 02:26 | NUR ---
CLARIFIED WITH DR DRAPER RE: HEPARIN DRIP VS. LOVENOX. STAY WITH LOVENOX. ADD PT ASSESS AND TX. WAIT ON COREPAC REPLACEMENT R/T POSSIBLE PEG TUBE INSERT. NUTRITION CONSULT FOR MORNING.
[2019-10-27 06:00] VITALS: BP 154/85
--- NOTE | 2019-10-27 06:20 | NUR ---
REPORT GIVEN TO EPHRAIM DELANEY.
[2019-10-27 06:35] LABS: BASOPHILS # (AUTO) 0.1 X10'3 (0-0.2); BASOPHILS % (AUTO) 0.7 % (0-1); EOSINOPHILS # (AUTO) 0.2 X10'3 (0-0.9); EOSINOPHILS % (AUTO) 2.2 % (0-6); HEMATOCRIT 39.7 % (42.0-52.0); HEMOGLOBIN 13.3 g/dl (14.0-17.9); LYMPHOCYTES # (AUTO) 1.2 X10'3 (1.1-4.8); LYMPHOCYTES % (AUTO) 12.3 % (21-51); MEAN CORPUSCULAR HEMOGLOBIN 31.5 PG (27.0-31.0); MEAN CORPUSCULAR HGB CONC 33.4 g/dL (33.0-36.5); MEAN CORPUSCULAR VOLUME 94.3 FL (78-98); MEAN PLATELET VOLUME 8.2 FL (7.4-10.4); MONOCYTES # (AUTO) 0.9 X10'3 (0-0.9); MONOCYTES % (AUTO) 9.2 % (2-12); NEUTROPHILS # (AUTO) 7.1 X10'3 (1.8-7.7); NEUTROPHILS % (AUTO) 75.6 % (42-75); PLATELET COUNT 326 X10'3 (140-440); RED BLOOD COUNT 4.21 X10'6 (4.70-6.10); WHITE BLOOD COUNT 9.4 X10'3 (4.5-11.0)
[2019-10-27 06:56] LABS: ALANINE AMINOTRANSFERASE 33 U/L (12-78); ALBUMIN 2.6 G/DL (3.4-5.0); ALBUMIN/GLOBULIN RATIO 0.6 (1.1-1.5); ALKALINE PHOSPHATASE 79 IU/L (46-116); ANION GAP 9 (8-16); ASPARTATE AMINO TRANSFERASE 26 U/L (10-37); BILIRUBIN,TOTAL 0.5 MG/DL (0.1-1.0); BLOOD UREA NITROGEN 22 MG/DL (7-18); BUN/CREATININE RATIO 27.8 (5.4-32.0); CHLORIDE 105 MMOL/L (99-107); CREATININE 0.79 MG/DL (0.60-1.10); GLUCOSE 221 MG/DL (70-104); POTASSIUM 4.3 MMOL/L (3.5-5.1); SODIUM 141 MMOL/L (135-145); TOTAL CARBON DIOXIDE 27.2 MMOL/L (24-32); TOTAL PROTEIN 6.8 G/DL (6.4-8.2); eGFR > 90 ML/MIN
[2019-10-27] MEDS: levoTHYROXINE 25mcg tablet NG SCH (07:00)
[2019-10-27 07:20] LABS: HEMOGLOBIN A1C 9.5 % (4.5-6.2)
[2019-10-27] MEDS ORDERED: polyethylene glycol 3350 17gm powd pack NG PRN (08:00)
[2019-10-27] MEDS: lisinopril 20mg tablet NG SCH (08:00)
[2019-10-27 10:00] VITALS: BP 172/97
--- NOTE | 2019-10-27 11:45 | NUR ---
Student documentation: I have reviewed all interventions, assessments performed and documented by Baron [place]. Student Medication Administration: For this medication-pass time frame, all medication were reviewed, dispensed, administered and documented per hospital policy by [facility].
--- NOTE | 2019-10-27 12:27 | NUR ---
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 Corpak currently in place; no scaled wt hx or scaled wt this admit and RN reports likely unable to obtain wt given pt status at this time. Will recommend GRV's per protocol since unsure whether corpak is post-pyloric at this time; if post-pyloric no need for GRV's. Will use IBW for EN recs and monitor for tolerance. No BM yet this admit. Hx T2DM newly DX recent prior admit A1C 10.[address] for written/verbal ed prior to most recent CVA. A1C 9.5 at this time; not appropriate for DM reinforcement ed. Would benefit from SHIP CLEANER BSS once improves as medically indicated given on pureed/nectar thick diet 10/17 admit. Will continue to monitor. Rec: 1. NGTF per MD using Glucerna 1.2 at 85ml/hr goal; to provide 2040ml fluid, 1652ml free water, 2448 kcals, and 122g protein. Initiate at 20ml/hr and advance 20ml Q8 to goal as tolerated. 2. additional water flush 200ml Q4 3. PALB Q /; daily wts 4. SHIP CLEANER BSS prior to PO; IF to advance to PO diet 5. scaled wt for optimal EN recs this admit 6. IF PEG; maintain current continuous EN regimen to best meet nutrition needs Addendum: 10/27/19 at [address] Amended: Links added.
[2019-10-27] MEDS: normal saline 1000ml 1,000 ML IV SCH ×2 (13:37→19:22)
[2019-10-27 14:00] VITALS: BP 156/89
[2019-10-27] MEDS: enoxaparin 30mg/0.3ml syringe SUBCUT SCH ×2 (15:00→22:44)
[2019-10-27] MEDS: enoxaparin 60mg/0.6ml syringe SUBCUT SCH ×2 (15:00→22:43)
[2019-10-27 18:00] VITALS: BP 136/87
--- NOTE | 2019-10-27 18:05 | NUR ---
Patient in room ORTHO 4011. I have received report from EPHRAIM Davila and had the opportunity to ask questions and assume patient care.
[2019-10-27] MEDS: insulin Lispro (HumaLOG) vial - multi-dose SQ SCH (19:54)
[2019-10-27] MEDS: atorvastatin 20mg tablet NG SCH (20:00)
[2019-10-27] MEDS ORDERED: pyridoxine 50mg tablet PO SCH (21:00)
[2019-10-27] MEDS ORDERED: Melatonin 3mg tablet PO SCH (21:00)
[2019-10-27 22:00] VITALS: BP 134/83
--- NOTE | 2019-10-27 22:40 | NUR ---
2000 Maxwell okayed to give late per Dr. Nolen. AM Maxwell to be held for procedure.
[2019-10-28] VITALS (9 sets, daily range): BP systolic 125–171; BP diastolic 67–91
[2019-10-28] MEDS: insulin Lispro (HumaLOG) vial - multi-dose SQ SCH ×2 (02:55→18:55)
[2019-10-28] MEDS: enoxaparin 30mg/0.3ml syringe SUBCUT SCH (05:19)
[2019-10-28] MEDS: enoxaparin 60mg/0.6ml syringe SUBCUT SCH ×2 (05:21→19:14)
[2019-10-28] MEDS ORDERED: LORazepam 2 mg/ml vial IV ONE (05:25)
[2019-10-28 06:09] LABS: BASOPHILS # (AUTO) 0.1 X10'3 (0-0.2); BASOPHILS % (AUTO) 0.5 % (0-1); EOSINOPHILS # (AUTO) 0.2 X10'3 (0-0.9); EOSINOPHILS % (AUTO) 1.4 % (0-6); HEMATOCRIT 38.2 % (42.0-52.0); HEMOGLOBIN 12.9 g/dl (14.0-17.9); LYMPHOCYTES # (AUTO) 1.2 X10'3 (1.1-4.8); LYMPHOCYTES % (AUTO) 11.3 % (21-51); MEAN CORPUSCULAR HEMOGLOBIN 31.8 PG (27.0-31.0); MEAN CORPUSCULAR HGB CONC 33.8 g/dL (33.0-36.5); MEAN CORPUSCULAR VOLUME 94.1 FL (78-98); MEAN PLATELET VOLUME 8.4 FL (7.4-10.4); MONOCYTES # (AUTO) 0.9 X10'3 (0-0.9); MONOCYTES % (AUTO) 8.2 % (2-12); NEUTROPHILS # (AUTO) 8.5 X10'3 (1.8-7.7); NEUTROPHILS % (AUTO) 78.6 % (42-75); PLATELET COUNT 331 X10'3 (140-440); RED BLOOD COUNT 4.05 X10'6 (4.70-6.10); RED CELL DISTRIBUTION WIDTH 13.1 % (11.5-14.5); WHITE BLOOD COUNT 10.9 X10'3 (4.5-11.0)
[2019-10-28 06:23] LABS: ALANINE AMINOTRANSFERASE 35 U/L (12-78); ALBUMIN 2.5 G/DL (3.4-5.0); ALBUMIN/GLOBULIN RATIO 0.6 (1.1-1.5); ALKALINE PHOSPHATASE 76 IU/L (46-116); ANION GAP 8 (8-16); ASPARTATE AMINO TRANSFERASE 25 U/L (10-37); BILIRUBIN,TOTAL 0.4 MG/DL (0.1-1.0); BLOOD UREA NITROGEN 22 MG/DL (7-18); BUN/CREATININE RATIO 26.2 (5.4-32.0); CALCIUM 8.6 MG/DL (8.5-10.1); CHLORIDE 106 MMOL/L (99-107); CREATININE 0.84 MG/DL (0.60-1.10); GLUCOSE 177 MG/DL (70-104); PREALBUMIN 19.1 MG/DL (19-36); SODIUM 141 MMOL/L (135-145); TOTAL CARBON DIOXIDE 27.2 MMOL/L (24-32); TOTAL PROTEIN 6.8 G/DL (6.4-8.2); eGFR > 90 ML/MIN
--- NOTE | 2019-10-28 06:33 | NUR ---
Problems reprioritized. Patient report given, questions answered & plan of care reviewed with EPHRAIM Bernard.
--- NOTE | 2019-10-28 06:38 | NUR ---
Patient in room ORTHO 4009. I have received report from Constance YE and had the opportunity to ask questions and assume patient care.
[2019-10-28] MEDS: levoTHYROXINE 25mcg tablet NG SCH (07:00)
--- NOTE | 2019-10-28 07:09 | NUR ---
The daughter called this am, stating she wanted him to go to [facility] but I told her that was his decision. Exwife Jackeline Foster is not a decision maker and is helping daughter.
[2019-10-28] MEDS: lisinopril 20mg tablet NG SCH (08:00)
--- NOTE | 2019-10-28 10:15 | NUR ---
PAGER ID: [phone] MESSAGE: [id number] Rodrigo Phan Do you want to proceed with the Peg tube or put another corpak in? Joana [phone]
[2019-10-28] MEDS: normal saline 1000ml 1,000 ML IV SCH (10:41)
--- NOTE | 2019-10-28 11:30 | NUR ---
Daughter called for check up, I told her her dad left 20mins ago to the GI lab for Peg-tube placement.
[2019-10-28] MEDS ORDERED: MIDAZolam 5mg/5ml vial ONE (11:31)
[2019-10-28] MEDS ORDERED: LIDOcaine Viscous 15ml cup ONE (11:31)
[2019-10-28] MEDS ORDERED: fentaNYL/PF 50MCG/1 ML 2ML syringe ONE (11:31)
[2019-10-28] MEDS ORDERED: ceFAZolin 1GM/D5W- ADD-VANTAGE 50 ML IV ONE (12:45)
--- NOTE | 2019-10-28 13:06 | NUR ---
Patient back from GI lab, Peg tube placed.
[2019-10-28] MEDS: furosemide 40mg/4ml inj IV SCH ×3 (14:15→19:10)
[2019-10-28] MEDS: metoclopramide 5 mg/ml inj IV PRN (14:57)
[2019-10-28 15:00] LABS: ABG BASE EXCESS 0.3 mmol/L (-2.0-2.0); ABG HCO3 23.3 mmol/L (22.0-26.0); ABG OXYGEN SATURATION 90.9 % (94-97); ABG PCO2 (T) 33.1 mmHg (35.0-48.0); ABG PO2 (T) 59.9 mmHg (75.0-100.0); ALLEN'S TEST POSITIVE; FCOHb 0.4 % (0.0-3.9); FLOW 3 L/min; FMetHb 0.3 % (0.0-1.5); FO2Hb 90.3 % (94-97)
[2019-10-28] MEDS ORDERED: albuterol 2.5 MG/3 ML nebule NEB PRN (16:25)
--- NOTE | 2019-10-28 18:55 | NUR ---
Problems reprioritized. Patient report given, questions answered & plan of care reviewed with Grace YE.
[2019-10-28] MEDS: morphine 2 MG/ML inj. syringe IV PRN (19:10)
[2019-10-28] MEDS: atorvastatin 20mg tablet NG SCH (20:00)
--- NOTE | 2019-10-28 23:10 | NUR ---
replaced condom cath. large incont urine
[2019-10-29] MEDS: pantoprazole 40 MG vial IV SCH ×3 (00:13→19:55)
[2019-10-29] MEDS: insulin Lispro (HumaLOG) vial - multi-dose SQ SCH ×2 (00:17→10:01)
[2019-10-29] MEDS: morphine 2 MG/ML inj. syringe IV PRN ×2 (00:42→18:42)
[2019-10-29 02:00] VITALS: BP 123/73
[2019-10-29 06:00] VITALS: BP 141/73
[2019-10-29 06:26] LABS: BASOPHILS # (AUTO) 0.1 X10'3 (0-0.2); BASOPHILS % (AUTO) 0.3 % (0-1); EOSINOPHILS % (AUTO) 0.3 % (0-6); HEMATOCRIT 39.7 % (42.0-52.0); HEMOGLOBIN 13.2 g/dl (14.0-17.9); LYMPHOCYTES # (AUTO) 1.1 X10'3 (1.1-4.8); LYMPHOCYTES % (AUTO) 5.7 % (21-51); MEAN CORPUSCULAR HEMOGLOBIN 31.1 PG (27.0-31.0); MEAN CORPUSCULAR HGB CONC 33.3 g/dL (33.0-36.5); MEAN CORPUSCULAR VOLUME 93.4 FL (78-98); MEAN PLATELET VOLUME 8.6 FL (7.4-10.4); MONOCYTES # (AUTO) 1.5 X10'3 (0-0.9); NEUTROPHILS % (AUTO) 85.7 % (42-75); PLATELET COUNT 322 X10'3 (140-440); RED BLOOD COUNT 4.25 X10'6 (4.70-6.10); RED CELL DISTRIBUTION WIDTH 13.3 % (11.5-14.5); WHITE BLOOD COUNT 18.6 X10'3 (4.5-11.0)
[2019-10-29 06:40] LABS: ALANINE AMINOTRANSFERASE 34 U/L (12-78); ALBUMIN 2.7 G/DL (3.4-5.0); ALBUMIN/GLOBULIN RATIO 0.6 (1.1-1.5); ALKALINE PHOSPHATASE 79 IU/L (46-116); ANION GAP 9 (8-16); ASPARTATE AMINO TRANSFERASE 26 U/L (10-37); BILIRUBIN,TOTAL 0.6 MG/DL (0.1-1.0); BLOOD UREA NITROGEN 26 MG/DL (7-18); BUN/CREATININE RATIO 25.7 (5.4-32.0); CALCIUM 8.8 MG/DL (8.5-10.1); CHLORIDE 105 MMOL/L (99-107); CREATININE 1.01 MG/DL (0.60-1.10); GLUCOSE 189 MG/DL (70-104); POTASSIUM 3.8 MMOL/L (3.5-5.1); SODIUM 141 MMOL/L (135-145); TOTAL CARBON DIOXIDE 26.7 MMOL/L (24-32); TOTAL PROTEIN 7.3 G/DL (6.4-8.2); eGFR 74 ML/MIN
--- NOTE | 2019-10-29 06:40 | NUR ---
Problems reprioritized. Patient report given, questions answered & plan of care reviewed with Myrtle YE.
[2019-10-29] MEDS: CefTRIAXone 2gm/D5W 50ml 50 ML IV SCH (09:33)
[2019-10-29] MEDS: furosemide 40mg/4ml inj IV SCH (09:34)
[2019-10-29] MEDS: levoTHYROXINE 25mcg tablet NG SCH (09:34)
[2019-10-29] MEDS: lisinopril 20mg tablet NG SCH (09:36)
[2019-10-29] MEDS: enoxaparin 60mg/0.6ml syringe SUBCUT SCH ×2 (09:36→19:55)
[2019-10-29 10:00] VITALS: BP 137/82
--- NOTE | 2019-10-29 10:30 | NUR ---
started TF at 20 ml per order
[2019-10-29 13:54] LABS: BASOPHILS # (AUTO) 0.1 X10'3 (0-0.2); BASOPHILS % (AUTO) 0.4 % (0-1); EOSINOPHILS % (AUTO) 0.2 % (0-6); HEMATOCRIT 38.8 % (42.0-52.0); LYMPHOCYTES % (AUTO) 4.9 % (21-51); MEAN CORPUSCULAR HEMOGLOBIN 31.1 PG (27.0-31.0); MEAN CORPUSCULAR HGB CONC 33.4 g/dL (33.0-36.5); MEAN CORPUSCULAR VOLUME 93.1 FL (78-98); MEAN PLATELET VOLUME 8.5 FL (7.4-10.4); MONOCYTES # (AUTO) 1.4 X10'3 (0-0.9); MONOCYTES % (AUTO) 7.1 % (2-12); NEUTROPHILS # (AUTO) 17.2 X10'3 (1.8-7.7); NEUTROPHILS % (AUTO) 87.4 % (42-75); PLATELET COUNT 331 X10'3 (140-440); RED BLOOD COUNT 4.17 X10'6 (4.70-6.10); RED CELL DISTRIBUTION WIDTH 13.1 % (11.5-14.5); WHITE BLOOD COUNT 19.7 X10'3 (4.5-11.0)
[2019-10-29 14:00] VITALS: BP 130/79
[2019-10-29] MEDS: insulin regular, human U-100 3ml vial - multi-dose SQ SCH ×2 (15:38→20:30)
[2019-10-29 18:00] VITALS: BP 125/66
--- NOTE | 2019-10-29 18:00 | NUR ---
Patient in room ORTHO 4011. I have received report from Myrtle YE and had the opportunity to ask questions and assume patient care.
--- NOTE | 2019-10-29 18:39 | NUR ---
increased TF to 40 ml/hr
[2019-10-29] MEDS ORDERED: iohexol 300mg/ml 100ml inj. ONE (19:09)
[2019-10-29] MEDS: lactobacillus rhamnosus 10,000 MMU CELLS/CAPSULE PO SCH (19:55)
[2019-10-29] MEDS: atorvastatin 20mg tablet NG SCH (19:55)
--- NOTE | 2019-10-29 21:34 | NUR ---
I faxed the Ct report to Dr. Kaur that came in tonight since Radiology was unable to reach him. He called me and told me that he reached the Radiologist and patient has PE. I explained to the doctor that he was transferred back and had a PE at that time. Went over the medication and patient on weight based Lovenox.
[2019-10-29 22:00] VITALS: BP 116/67
[2019-10-29] MEDS: Melatonin 3mg tablet PO SCH (22:16)
--- NOTE | 2019-10-29 22:54 | NUR ---
patient refusing to due daily weight. Says he wants to do it later.
[2019-10-29] MEDS: normal saline 1000ml 1,000 ML IV SCH (22:55)
[2019-10-30] MEDS: morphine 2 MG/ML inj. syringe IV PRN ×3 (01:11→20:15)
[2019-10-30] MEDS: insulin regular, human U-100 3ml vial - multi-dose SQ SCH ×4 (02:17→20:12)
--- NOTE | 2019-10-30 06:28 | NUR ---
Problems reprioritized. Patient report given, questions answered & plan of care reviewed with Joana YE.
[2019-10-30 06:50] VITALS: BP 127/76
[2019-10-30] MEDS: levoTHYROXINE 25mcg tablet NG SCH (09:17)
[2019-10-30] MEDS: CefTRIAXone 2gm/D5W 50ml 50 ML IV SCH (09:17)
[2019-10-30] MEDS: lactobacillus rhamnosus 10,000 MMU CELLS/CAPSULE PO SCH ×2 (09:17→19:39)
[2019-10-30] MEDS: enoxaparin 60mg/0.6ml syringe SUBCUT SCH ×2 (09:17→19:40)
[2019-10-30] MEDS: lisinopril 20mg tablet NG SCH (09:20)
[2019-10-30] MEDS: furosemide 40mg/4ml inj IV SCH (09:21)
[2019-10-30] MEDS: pantoprazole 40 MG vial IV SCH ×2 (09:21→19:39)
[2019-10-30 10:00] VITALS: BP 132/72
[2019-10-30 10:05] LABS: BASOPHILS # (AUTO) 0.1 X10'3 (0-0.2); BASOPHILS % (AUTO) 0.4 % (0-1); EOSINOPHILS # (AUTO) 0.1 X10'3 (0-0.9); EOSINOPHILS % (AUTO) 0.5 % (0-6); HEMATOCRIT 38.2 % (42.0-52.0); HEMOGLOBIN 12.6 g/dl (14.0-17.9); LYMPHOCYTES # (AUTO) 1.1 X10'3 (1.1-4.8); LYMPHOCYTES % (AUTO) 6.2 % (21-51); MEAN CORPUSCULAR HEMOGLOBIN 31.1 PG (27.0-31.0); MEAN CORPUSCULAR VOLUME 94.3 FL (78-98); MEAN PLATELET VOLUME 8.6 FL (7.4-10.4); MONOCYTES # (AUTO) 1.1 X10'3 (0-0.9); MONOCYTES % (AUTO) 6.2 % (2-12); NEUTROPHILS # (AUTO) 14.8 X10'3 (1.8-7.7); NEUTROPHILS % (AUTO) 86.7 % (42-75); PLATELET COUNT 326 X10'3 (140-440); RED BLOOD COUNT 4.05 X10'6 (4.70-6.10); RED CELL DISTRIBUTION WIDTH 13.2 % (11.5-14.5); WHITE BLOOD COUNT 17.1 X10'3 (4.5-11.0)
[2019-10-30 10:20] LABS: ALANINE AMINOTRANSFERASE 37 U/L (12-78); ALBUMIN 2.4 G/DL (3.4-5.0); ALBUMIN/GLOBULIN RATIO 0.5 (1.1-1.5); ALKALINE PHOSPHATASE 86 IU/L (46-116); ANION GAP 9 (8-16); ASPARTATE AMINO TRANSFERASE 31 U/L (10-37); BILIRUBIN,TOTAL 0.4 MG/DL (0.1-1.0); BLOOD UREA NITROGEN 28 MG/DL (7-18); BUN/CREATININE RATIO 26.9 (5.4-32.0); CALCIUM 8.8 MG/DL (8.5-10.1); CHLORIDE 104 MMOL/L (99-107); CREATININE 1.04 MG/DL (0.60-1.10); GLUCOSE 172 MG/DL (70-104); POTASSIUM 3.3 MMOL/L (3.5-5.1); SODIUM 141 MMOL/L (135-145); TOTAL CARBON DIOXIDE 27.6 MMOL/L (24-32); eGFR 71 ML/MIN
[2019-10-30] MEDS ORDERED: iohexol 350MG/ML 100ml bottle IV ONE (12:32)
--- NOTE | 2019-10-30 12:56 | NUR ---
Reassessment: Pt s/p PEG tube placement. RN notes state TF advanced to 40 mL/hr at 18:39 working towards goal rate of 85 mL/hr. Residuals 1-5 mL, WNL. LBM 10/26. PRN bowel care available and pt received PRN Reglan 10/27. Home PEG recs below. Will continue to follow closely. Rec: 1. Continuous TF via PEG using Glucerna 1.2 at 85ml/hr goal; to provide 2040ml total volume, 1652ml water, 2448 kcals, and 122g protein. Initiate at 20ml/hr and advance 20ml Q8H to goal as tolerated. 2. additional water flush 200ml Q4H 3. PALB Q /; daily wts 4. ELECTRIC PILE DRIVER OPERATOR BSS prior to PO; IF to advance to PO diet HOME PEG RECS: 1) If continuous: Glucerna 1.2 or equivalent with goal rate of 65 mL/hr with 100 mL water flushes Q4H 2) If bolus: Glucerna 1.2 or equivalent to begin at 120 mL bolus and advance by 50 mL each bolus as tolerated to goal of 390 mL bolus QID with 75 mL water flushes before and after each bolus feed 3) Outpatient RD to titrate to goal rate and make adjustments as needed based on patient's estimated nutrient needs Addendum: 10/30/19 at [address] Amended: Links added.
[2019-10-30] MEDS: metroNIDAZOLE-Flagyl 500mg/NS 100 ML IV SCH ×2 (15:13→23:18)
--- NOTE | 2019-10-30 16:22 | NUR ---
REPORT TO PATRICIA YE
[2019-10-30 18:00] VITALS: BP 134/66
[2019-10-30] MEDS: atorvastatin 20mg tablet NG SCH (19:39)
[2019-10-30] MEDS: Melatonin 3mg tablet PO SCH (20:13)
[2019-10-30 22:00] VITALS: BP 115/57
[2019-10-31] MEDS: insulin regular, human U-100 3ml vial - multi-dose SQ SCH ×4 (01:53→20:34)
[2019-10-31] MEDS: morphine 2 MG/ML inj. syringe IV PRN ×3 (04:03→23:24)
[2019-10-31 06:12] LABS: BASOPHILS # (AUTO) 0.1 X10'3 (0-0.2); BASOPHILS % (AUTO) 0.6 % (0-1); EOSINOPHILS # (AUTO) 0.2 X10'3 (0-0.9); EOSINOPHILS % (AUTO) 2.3 % (0-6); HEMATOCRIT 34.2 % (42.0-52.0); HEMOGLOBIN 11.6 g/dl (14.0-17.9); LYMPHOCYTES # (AUTO) 0.9 X10'3 (1.1-4.8); LYMPHOCYTES % (AUTO) 9.6 % (21-51); MEAN CORPUSCULAR HGB CONC 33.9 g/dL (33.0-36.5); MEAN CORPUSCULAR VOLUME 94.3 FL (78-98); MEAN PLATELET VOLUME 8.5 FL (7.4-10.4); MONOCYTES # (AUTO) 0.6 X10'3 (0-0.9); MONOCYTES % (AUTO) 6.5 % (2-12); NEUTROPHILS # (AUTO) 7.7 X10'3 (1.8-7.7); PLATELET COUNT 283 X10'3 (140-440); RED BLOOD COUNT 3.62 X10'6 (4.70-6.10); RED CELL DISTRIBUTION WIDTH 13.3 % (11.5-14.5); WHITE BLOOD COUNT 9.5 X10'3 (4.5-11.0)
--- NOTE | 2019-10-31 06:19 | NUR ---
Problems reprioritized. Patient report given, questions answered & plan of care reviewed with Verenice YE.
--- NOTE | 2019-10-31 06:24 | NUR ---
Received report from nery EY
[2019-10-31 06:27] LABS: ALANINE AMINOTRANSFERASE 29 U/L (12-78); ALBUMIN 2.1 G/DL (3.4-5.0); ALBUMIN/GLOBULIN RATIO 0.5 (1.1-1.5); ALKALINE PHOSPHATASE 81 IU/L (46-116); ANION GAP 6 (8-16); ASPARTATE AMINO TRANSFERASE 22 U/L (10-37); BILIRUBIN,TOTAL 0.2 MG/DL (0.1-1.0); BLOOD UREA NITROGEN 24 MG/DL (7-18); BUN/CREATININE RATIO 24.5 (5.4-32.0); CALCIUM 8.5 MG/DL (8.5-10.1); CHLORIDE 105 MMOL/L (99-107); CREATININE 0.98 MG/DL (0.60-1.10); GLUCOSE 139 MG/DL (70-104); POTASSIUM 3.3 MMOL/L (3.5-5.1); SODIUM 142 MMOL/L (135-145); TOTAL CARBON DIOXIDE 30.8 MMOL/L (24-32); TOTAL PROTEIN 6.3 G/DL (6.4-8.2); eGFR 76 ML/MIN
[2019-10-31 07:17] VITALS: BP 141/72
[2019-10-31] MEDS: CefTRIAXone 2gm/D5W 50ml 50 ML IV SCH (07:35)
[2019-10-31] MEDS: levoTHYROXINE 25mcg tablet NG SCH (07:51)
[2019-10-31] MEDS: lactobacillus rhamnosus 10,000 MMU CELLS/CAPSULE PO SCH ×2 (07:51→20:11)
[2019-10-31] MEDS: pantoprazole 40 MG vial IV SCH ×2 (07:51→20:12)
[2019-10-31] MEDS: lisinopril 20mg tablet NG SCH (07:51)
[2019-10-31] MEDS: furosemide 40mg/4ml inj IV SCH (07:51)
[2019-10-31] MEDS: enoxaparin 60mg/0.6ml syringe SUBCUT SCH ×2 (08:04→20:12)
[2019-10-31] MEDS: metroNIDAZOLE-Flagyl 500mg/NS 100 ML IV SCH ×3 (08:55→23:28)
[2019-10-31 10:00] VITALS: BP 138/74
[2019-10-31] MEDS ORDERED: AMOX-422 PO (12:49)
[2019-10-31 18:00] VITALS: BP 138/72
--- NOTE | 2019-10-31 18:36 | NUR ---
Patient in room ORTHO 4011. I have received report from Verenice YE and had the opportunity to ask questions and assume patient care.
[2019-10-31] MEDS: Melatonin 3mg tablet PO SCH (20:11)
[2019-10-31] MEDS: atorvastatin 20mg tablet NG SCH (20:12)
[2019-10-31 22:00] VITALS: BP 128/60
[2019-11-01] MEDS: insulin regular, human U-100 3ml vial - multi-dose SQ SCH ×4 (01:55→20:19)
--- NOTE | 2019-11-01 06:17 | NUR ---
Problems reprioritized. Patient report given, questions answered & plan of care reviewed with Verenice YE.
--- NOTE | 2019-11-01 06:22 | NUR ---
Received report from Sarah YE
[2019-11-01] MEDS: levoTHYROXINE 25mcg tablet NG SCH (07:00)
[2019-11-01 07:12] VITALS: BP 140/70
[2019-11-01] MEDS: metroNIDAZOLE-Flagyl 500mg/NS 100 ML IV SCH (08:00)
[2019-11-01] MEDS: pantoprazole 40 MG vial IV SCH ×2 (08:25→20:20)
[2019-11-01] MEDS: furosemide 40mg/4ml inj IV SCH (08:25)
[2019-11-01] MEDS: lisinopril 20mg tablet NG SCH (08:25)
[2019-11-01] MEDS: lactobacillus rhamnosus 10,000 MMU CELLS/CAPSULE PO SCH ×2 (08:25→20:20)
[2019-11-01] MEDS: CefTRIAXone 2gm/D5W 50ml 50 ML IV SCH (08:25)
[2019-11-01 10:00] VITALS: BP 163/73
[2019-11-01] MEDS: enoxaparin 40mg/0.4ml syringe SUBCUT SCH (10:20)
[2019-11-01] MEDS: ipratropium/albuterol 3ml nebule NEB SCH ×3 (16:08→23:16)
[2019-11-01] MEDS: piperacillin/tazo 3.375gm/50ml 50 ML IV SCH (16:25)
[2019-11-01 18:00] VITALS: BP 119/63
--- NOTE | 2019-11-01 18:22 | NUR ---
RECEIVED REPORT FROM NIKKI YE AND ASSUMED PATIENT CARE
[2019-11-01] MEDS: Melatonin 3mg tablet PO SCH (20:20)
[2019-11-01] MEDS: atorvastatin 20mg tablet NG SCH (20:20)
[2019-11-01] MEDS: morphine 2 MG/ML inj. syringe IV PRN (20:22)
[2019-11-01 22:00] VITALS: BP 131/62
[2019-11-02] MEDS: piperacillin/tazo 3.375gm/50ml 50 ML IV SCH ×3 (00:14→16:12)
[2019-11-02] MEDS: insulin regular, human U-100 3ml vial - multi-dose SQ SCH ×4 (02:06→21:52)
[2019-11-02] MEDS: ipratropium/albuterol 3ml nebule NEB SCH ×6 (03:31→23:38)
[2019-11-02 06:00] VITALS: BP 116/59
--- NOTE | 2019-11-02 06:15 | NUR ---
Patient in room ORTHO 4011. I have received report from EPHRAIM Ch and had the opportunity to ask questions and assume patient care.
[2019-11-02 07:52] LABS: BASOPHILS % (AUTO) 0.4 % (0-1); EOSINOPHILS # (AUTO) 0.1 X10'3 (0-0.9); EOSINOPHILS % (AUTO) 1.6 % (0-6); HEMATOCRIT 38.4 % (42.0-52.0); HEMOGLOBIN 12.9 g/dl (14.0-17.9); LYMPHOCYTES # (AUTO) 0.7 X10'3 (1.1-4.8); LYMPHOCYTES % (AUTO) 7.6 % (21-51); MEAN CORPUSCULAR HEMOGLOBIN 31.9 PG (27.0-31.0); MEAN CORPUSCULAR HGB CONC 33.7 g/dL (33.0-36.5); MEAN CORPUSCULAR VOLUME 94.8 FL (78-98); MEAN PLATELET VOLUME 8.4 FL (7.4-10.4); MONOCYTES # (AUTO) 0.6 X10'3 (0-0.9); MONOCYTES % (AUTO) 6.7 % (2-12); NEUTROPHILS # (AUTO) 7.6 X10'3 (1.8-7.7); NEUTROPHILS % (AUTO) 83.7 % (42-75); PLATELET COUNT 310 X10'3 (140-440); RED BLOOD COUNT 4.05 X10'6 (4.70-6.10); RED CELL DISTRIBUTION WIDTH 13.6 % (11.5-14.5); WHITE BLOOD COUNT 9.1 X10'3 (4.5-11.0)
[2019-11-02 08:05] LABS: ALBUMIN 2.2 G/DL (3.4-5.0); ANION GAP 6 (8-16); BLOOD UREA NITROGEN 21 MG/DL (7-18); BUN/CREATININE RATIO 20.6 (5.4-32.0); CALCIUM 8.8 MG/DL (8.5-10.1); CHLORIDE 102 MMOL/L (99-107); CREATININE 1.02 MG/DL (0.60-1.10); GLUCOSE 190 MG/DL (70-104); POTASSIUM 4.3 MMOL/L (3.5-5.1); SODIUM 136 MMOL/L (135-145); TOTAL CARBON DIOXIDE 28.1 MMOL/L (24-32); eGFR 73 ML/MIN
[2019-11-02] MEDS: furosemide 40mg/4ml inj IV SCH (08:48)
[2019-11-02] MEDS: pantoprazole 40 MG vial IV SCH ×2 (08:48→20:50)
[2019-11-02] MEDS: enoxaparin 40mg/0.4ml syringe SUBCUT SCH (08:49)
[2019-11-02] MEDS: lactobacillus rhamnosus 10,000 MMU CELLS/CAPSULE PO SCH (08:49)
[2019-11-02] MEDS: lisinopril 20mg tablet NG SCH (08:49)
[2019-11-02] MEDS: levoTHYROXINE 25mcg tablet NG SCH (09:08)
[2019-11-02 10:00] VITALS: BP 119/61
[2019-11-02] MEDS ORDERED: aspirin 81mg tablet.DR PO ONE (13:45)
[2019-11-02 14:00] VITALS: BP 128/72
[2019-11-02] MEDS ORDERED: dextrose ORAL solution 15 GM/59 ML bottle PEG PRN ×2 (14:19→14:34)
[2019-11-02] MEDS ORDERED: mag hydrox/Alum hydrox/simeth 30ml oral suspension PEG PRN (14:20)
[2019-11-02] MEDS ORDERED: polyethylene glycol 3350 17gm powd pack PEG PRN (14:20)
--- NOTE | 2019-11-02 15:07 | NUR ---
F/u (11/01): Pt tolerating EN at goal GRV WNL. New first scaled wt 76kg which changes current nutrition recs since initially used IBW since pending scaled wt. RD d/w who is agreeable to new RD TF goal rate recs of 75ml/hr; updated recs below and RD notified RN regarding updated recs in EMR. Glu 198 though not receiving basal coverage; may benefit for improved Glu control especially since recent new DM DX if MD agreeable. LBM 10/31. Na 136 improved from admit 146; also receiving lasix. Will continue to monitor for EN tolerance. Rec: 1. Continuous TF via PEG using Glucerna 1.2 at 75ml/hr goal; to provide 1800ml total volume, 1458ml water, 2160kcals, and 108g protein. Initiate at 75ml/hr since previously tolerating at 85ml/hr. 2. additional water flush 200ml Q4H 3. PALB Q /; daily wts 4. MANAGER OF INTERNATIONAL BSS prior to PO; IF to advance to PO diet HOME PEG RECS: 1) If continuous: Glucerna 1.2 or equivalent with goal rate of 75 mL/hr with 100 mL water flushes Q4H 2) If bolus: Glucerna 1.5 or equivalent to begin at 120 mL bolus and advance by 50 mL each bolus as tolerated to goal of 320 mL bolus QID with 75 mL water flushes before and after each bolus feed 3) Additional 250ml free water daily 4) Outpatient RD to titrate to goal rate and make adjustments as needed based on patient's estimated nutrient needs Addendum: 11/02/19 at [address] Amended: Links added.
[2019-11-02] MEDS: morphine 2 MG/ML inj. syringe IV PRN (16:25)
[2019-11-02 18:00] VITALS: BP 99/65
--- NOTE | 2019-11-02 18:15 | NUR ---
RECEIVED REPORT FROM PAULETTE YE AND ASSUMED PATIENT CARE
--- NOTE | 2019-11-02 18:23 | NUR ---
Problems reprioritized. Patient report given, questions answered & plan of care reviewed with christine stephens.
[2019-11-02] MEDS: Melatonin 3mg tablet PO SCH (20:50)
[2019-11-02] MEDS: lactobacillus rhamnosus 10,000 MMU CELLS/CAPSULE PEG SCH (20:50)
[2019-11-02] MEDS: atorvastatin 20mg tablet PEG SCH (20:50)
[2019-11-02 22:00] VITALS: BP 112/61
[2019-11-03] MEDS: piperacillin/tazo 3.375gm/50ml 50 ML IV SCH ×4 (01:35→23:33)
[2019-11-03] MEDS: insulin regular, human U-100 3ml vial - multi-dose SQ SCH ×4 (02:32→20:28)
[2019-11-03] MEDS: ipratropium/albuterol 3ml nebule NEB SCH ×6 (02:46→23:24)
[2019-11-03 06:00] VITALS: BP 128/76
--- NOTE | 2019-11-03 06:30 | NUR ---
Patient in room ORTHO 4011. I have received report from Mireya and had the opportunity to ask questions and assume patient care.
[2019-11-03] MEDS: lisinopril 20mg tablet PEG SCH (07:44)
[2019-11-03] MEDS: pantoprazole 40 MG vial IV SCH ×2 (07:45→20:21)
[2019-11-03] MEDS: lactobacillus rhamnosus 10,000 MMU CELLS/CAPSULE PEG SCH ×2 (07:45→20:22)
[2019-11-03] MEDS: furosemide 40mg/4ml inj IV SCH (07:45)
[2019-11-03] MEDS: aspirin 81mg tablet.DR PO SCH (07:45)
[2019-11-03] MEDS: levoTHYROXINE 25mcg tablet PEG SCH (07:45)
[2019-11-03] MEDS: enoxaparin 40mg/0.4ml syringe SUBCUT SCH (07:46)
[2019-11-03 11:48] VITALS: BP 107/72
--- NOTE | 2019-11-03 12:03 | NUR ---
Student documentation: I have reviewed all interventions, assessments performed and documented by Shirley Medina. Student Medication Administration: For this medication-pass time frame, all medication were reviewed, dispensed, administered and documented per hospital policy by [facility].
[2019-11-03] MEDS ORDERED: NUT.TX.GLUC.INTOLER,LAC-FR,SOY (GLUCERNA) 237 ML PO SCH (13:55)
--- NOTE | 2019-11-03 16:57 | NUR ---
Student documentation: I have reviewed assessment performed and documented by Selma FLORENCE [facility].
[2019-11-03] MEDS ORDERED: NUT.TX.GLUC.INTOLER,LAC-FR,SOY (GLUCERNA) 237 ML PEG SCH (18:00)
--- NOTE | 2019-11-03 18:17 | NUR ---
Problems reprioritized. Patient report given, questions answered & plan of care reviewed with Mireya.
--- NOTE | 2019-11-03 18:22 | NUR ---
RECEIVED REPORT FROM ZEE YE AND ASSUMED PATIENT CARE
[2019-11-03 18:24] VITALS: BP 98/64
[2019-11-03] MEDS: atorvastatin 20mg tablet PEG SCH (20:21)
[2019-11-03] MEDS: Melatonin 3mg tablet PO SCH (20:22)
[2019-11-03] MEDS: morphine 2 MG/ML inj. syringe IV PRN (20:22)
[2019-11-04] MEDS: insulin regular, human U-100 3ml vial - multi-dose SQ SCH ×4 (01:55→21:06)
[2019-11-04] MEDS: ipratropium/albuterol 3ml nebule NEB SCH ×6 (04:02→23:26)
[2019-11-04 05:32] VITALS: BP 114/54
[2019-11-04 06:10] VITALS: BP 135/78
[2019-11-04] MEDS: lactobacillus rhamnosus 10,000 MMU CELLS/CAPSULE PEG SCH ×2 (07:45→20:54)
[2019-11-04] MEDS: pantoprazole 40 MG vial IV SCH ×2 (07:45→20:54)
[2019-11-04] MEDS: lisinopril 20mg tablet PEG SCH (07:45)
[2019-11-04] MEDS: aspirin 81mg tablet.DR PO SCH (07:45)
[2019-11-04] MEDS: levoTHYROXINE 25mcg tablet PEG SCH (07:45)
[2019-11-04] MEDS: furosemide 40mg/4ml inj IV SCH (07:46)
[2019-11-04] MEDS: enoxaparin 40mg/0.4ml syringe SUBCUT SCH (07:46)
[2019-11-04 10:00] VITALS: BP 105/63
[2019-11-04] MEDS: piperacillin/tazo 3.375gm/50ml 50 ML IV SCH ×2 (10:26→15:48)
--- NOTE | 2019-11-04 17:38 | NUR ---
Student documentation: I have reviewed assessment performed and documented by Elsa FLORENCE [facility].
[2019-11-04 18:00] VITALS: BP 104/65
--- NOTE | 2019-11-04 18:17 | NUR ---
Problems reprioritized. Patient report given, questions answered & plan of care reviewed with Julissa Kumar RN.
[2019-11-04] MEDS: atorvastatin 20mg tablet PEG SCH (20:54)
[2019-11-04] MEDS: Melatonin 3mg tablet PO SCH (20:54)
[2019-11-04 22:00] VITALS: BP 116/57
[2019-11-05] MEDS: piperacillin/tazo 3.375gm/50ml 50 ML IV SCH ×4 (00:18→23:51)
[2019-11-05] MEDS: insulin regular, human U-100 3ml vial - multi-dose SQ SCH ×4 (01:56→20:56)
[2019-11-05] MEDS: ipratropium/albuterol 3ml nebule NEB SCH ×6 (03:00→23:30)
[2019-11-05 06:10] VITALS: BP 102/63
--- NOTE | 2019-11-05 06:28 | NUR ---
Patient in room ORTHO 4011. I have received report from Julissa Kumar RN and had the opportunity to ask questions and assume patient care.
[2019-11-05 06:29] LABS: ALANINE AMINOTRANSFERASE 48 U/L (12-78); ALBUMIN 2.4 G/DL (3.4-5.0); ALBUMIN/GLOBULIN RATIO 0.5 (1.1-1.5); ALKALINE PHOSPHATASE 91 IU/L (46-116); ANION GAP 7 (8-16); ASPARTATE AMINO TRANSFERASE 34 U/L (10-37); BILIRUBIN,TOTAL 0.4 MG/DL (0.1-1.0); BLOOD UREA NITROGEN 35 MG/DL (7-18); BUN/CREATININE RATIO 27.6 (5.4-32.0); CALCIUM 9.1 MG/DL (8.5-10.1); CHLORIDE 97 MMOL/L (99-107); CREATININE 1.27 MG/DL (0.60-1.10); GLUCOSE 143 MG/DL (70-104); POTASSIUM 4.5 MMOL/L (3.5-5.1); SODIUM 131 MMOL/L (135-145); TOTAL PROTEIN 7.4 G/DL (6.4-8.2); eGFR 57 ML/MIN
--- NOTE | 2019-11-05 06:33 | NUR ---
Patient in room ORTHO 4011. I have received report from Julissa Kumar RN and had the opportunity to ask questions and assume patient care.
[2019-11-05 07:12] LABS: BASOPHILS # (AUTO) 0.1 X10'3 (0-0.2); BASOPHILS % (AUTO) 1.1 % (0-1); EOSINOPHILS # (AUTO) 0.1 X10'3 (0-0.9); EOSINOPHILS % (AUTO) 2.2 % (0-6); HEMATOCRIT 37.4 % (42.0-52.0); HEMOGLOBIN 12.4 g/dl (14.0-17.9); LYMPHOCYTES # (AUTO) 0.9 X10'3 (1.1-4.8); LYMPHOCYTES % (AUTO) 13.9 % (21-51); MEAN CORPUSCULAR HGB CONC 33.2 g/dL (33.0-36.5); MEAN CORPUSCULAR VOLUME 93.4 FL (78-98); MEAN PLATELET VOLUME 8.3 FL (7.4-10.4); MONOCYTES # (AUTO) 0.7 X10'3 (0-0.9); MONOCYTES % (AUTO) 11.2 % (2-12); NEUTROPHILS # (AUTO) 4.5 X10'3 (1.8-7.7); NEUTROPHILS % (AUTO) 71.6 % (42-75); PLATELET COUNT 379 X10'3 (140-440); RED CELL DISTRIBUTION WIDTH 13.5 % (11.5-14.5); WHITE BLOOD COUNT 6.3 X10'3 (4.5-11.0)
[2019-11-05] MEDS: lactobacillus rhamnosus 10,000 MMU CELLS/CAPSULE PEG SCH ×2 (07:44→20:35)
[2019-11-05] MEDS: levoTHYROXINE 25mcg tablet PEG SCH (07:44)
[2019-11-05] MEDS: lisinopril 20mg tablet PEG SCH (07:45)
[2019-11-05] MEDS: aspirin 81mg tablet.DR PO SCH (07:45)
[2019-11-05] MEDS: furosemide 40mg/4ml inj IV SCH (07:46)
[2019-11-05] MEDS: pantoprazole 40 MG vial IV SCH ×2 (07:46→20:36)
[2019-11-05] MEDS: enoxaparin 40mg/0.4ml syringe SUBCUT SCH (08:00)
[2019-11-05 10:00] VITALS: BP 109/62
[2019-11-05 14:00] VITALS: BP 123/82
--- NOTE | 2019-11-05 15:24 | NUR ---
Reassessment: Pt continues tolerating TF with GRV WNL. Serum Na down to 131 today, previously WNL. Pt receiving 200 mL water flushes Q4H via PEG and on Lasix. Serum Na previously WNL throughout LOS. Will monitor need for adjustments in fluid flushes pending further trends in serum Na. LBM 9 documented as moderate. Pt awaiting placement per physician notes. Will continue to follow closely. Rec: 1. Continuous TF via PEG using Glucerna 1.2 at 75ml/hr goal; to provide 1800ml total volume, 1458ml water, 2160kcals, and 108g protein. Initiate at 75ml/hr since previously tolerating at 85ml/hr. 2. additional water flush 200ml Q4H; Monitor serum Na and adjust recommendations as appropriate 3. PALB Q /; daily wts 4. PRODUCTION WORKER BSS prior to PO; IF to advance to PO diet HOME PEG RECS: 1) If continuous: Glucerna 1.2 or equivalent with goal rate of 75 mL/hr with 100 mL water flushes Q4H 2) If bolus: Glucerna 1.5 or equivalent to begin at 120 mL bolus and advance by 50 mL each bolus as tolerated to goal of 320 mL bolus QID with 75 mL water flushes before and after each bolus feed 3) Additional 250ml free water daily 4) Outpatient RD to titrate to goal rate and make adjustments as needed based on patient's estimated nutrient needs Addendum: 11/05/19 at [address] Amended: Links added.
[2019-11-05 18:00] VITALS: BP 104/70
--- NOTE | 2019-11-05 18:32 | NUR ---
Problems reprioritized. Patient report given, questions answered & plan of care reviewed with Julissa Kumar RN.
[2019-11-05] MEDS: Melatonin 3mg tablet PO SCH (20:36)
[2019-11-05] MEDS: atorvastatin 20mg tablet PEG SCH (20:36)
[2019-11-05] MEDS: acetaminophen 325mg tablet PEG PRN (20:38)
--- NOTE | 2019-11-05 20:57 | NUR ---
rechecked insulin with lyn YE and agatha YE
[2019-11-05 22:00] VITALS: BP 105/57
[2019-11-06] MEDS: insulin regular, human U-100 3ml vial - multi-dose SQ SCH ×4 (02:37→21:10)
[2019-11-06] MEDS: ipratropium/albuterol 3ml nebule NEB SCH ×6 (04:13→23:32)
--- NOTE | 2019-11-06 05:03 | NUR ---
Reviewed and agree with SRN assessment findings.
[2019-11-06 06:10] VITALS: BP 113/66
--- NOTE | 2019-11-06 06:19 | NUR ---
Problems reprioritized. Patient report given, questions answered & plan of care reviewed with Rohini YE.
--- NOTE | 2019-11-06 06:30 | NUR ---
Patient in room ORTHO 4011. I have received report from Julissa YE and had the opportunity to ask questions and assume patient care.
[2019-11-06] MEDS: pantoprazole 40 MG vial IV SCH ×2 (08:58→21:03)
[2019-11-06] MEDS: lactobacillus rhamnosus 10,000 MMU CELLS/CAPSULE PEG SCH ×2 (08:58→20:49)
[2019-11-06] MEDS: enoxaparin 40mg/0.4ml syringe SUBCUT SCH (08:58)
[2019-11-06] MEDS: levoTHYROXINE 25mcg tablet PEG SCH (08:58)
[2019-11-06] MEDS: aspirin 81mg tablet.DR PO SCH (08:58)
[2019-11-06] MEDS: piperacillin/tazo 3.375gm/50ml 50 ML IV SCH ×3 (08:59→23:56)
[2019-11-06] MEDS: lisinopril 20mg tablet PEG SCH (08:59)
[2019-11-06] MEDS: furosemide 20 MG/2 ML vial IV SCH (09:00)
[2019-11-06 10:00] VITALS: BP 100/71
[2019-11-06 10:21] LABS: ALBUMIN 2.8 G/DL (3.4-5.0); ANION GAP 7 (8-16); BLOOD UREA NITROGEN 38 MG/DL (7-18); CALCIUM 9.1 MG/DL (8.5-10.1); CHLORIDE 94 MMOL/L (99-107); CREATININE 1.41 MG/DL (0.60-1.10); GLUCOSE 211 MG/DL (70-104); POTASSIUM 4.4 MMOL/L (3.5-5.1); SODIUM 130 MMOL/L (135-145); eGFR 50 ML/MIN
[2019-11-06] MEDS: acetaminophen 325mg tablet PEG PRN (17:39)
[2019-11-06 18:00] VITALS: BP 110/63
--- NOTE | 2019-11-06 18:38 | NUR ---
Problems reprioritized. Patient report given, questions answered & plan of care reviewed with Julissa Kumar RN.
[2019-11-06] MEDS: Melatonin 3mg tablet PO SCH (20:49)
[2019-11-06] MEDS: atorvastatin 20mg tablet PEG SCH (20:49)
[2019-11-06 22:00] VITALS: BP 101/55
[2019-11-07] MEDS: insulin regular, human U-100 3ml vial - multi-dose SQ SCH ×3 (02:23→20:40)
[2019-11-07] MEDS: ipratropium/albuterol 3ml nebule NEB SCH ×6 (03:00→22:37)
--- NOTE | 2019-11-07 04:16 | NUR ---
Charted at incorrect time
[2019-11-07 05:50] LABS: BASOPHILS % (AUTO) 0.9 % (0-1); EOSINOPHILS # (AUTO) 0.1 X10'3 (0-0.9); EOSINOPHILS % (AUTO) 2.6 % (0-6); HEMATOCRIT 36.3 % (42.0-52.0); HEMOGLOBIN 12.2 g/dl (14.0-17.9); LYMPHOCYTES # (AUTO) 0.9 X10'3 (1.1-4.8); LYMPHOCYTES % (AUTO) 17.5 % (21-51); MEAN CORPUSCULAR HEMOGLOBIN 31.4 PG (27.0-31.0); MEAN CORPUSCULAR HGB CONC 33.6 g/dL (33.0-36.5); MEAN CORPUSCULAR VOLUME 93.2 FL (78-98); MEAN PLATELET VOLUME 8.2 FL (7.4-10.4); MONOCYTES # (AUTO) 0.6 X10'3 (0-0.9); MONOCYTES % (AUTO) 11.6 % (2-12); NEUTROPHILS # (AUTO) 3.5 X10'3 (1.8-7.7); NEUTROPHILS % (AUTO) 67.4 % (42-75); PLATELET COUNT 355 X10'3 (140-440); RED CELL DISTRIBUTION WIDTH 13.5 % (11.5-14.5); WHITE BLOOD COUNT 5.1 X10'3 (4.5-11.0)
[2019-11-07 06:00] VITALS: BP 120/74
[2019-11-07 06:16] LABS: ALANINE AMINOTRANSFERASE 32 U/L (12-78); ALBUMIN 2.6 G/DL (3.4-5.0); ALBUMIN/GLOBULIN RATIO 0.6 (1.1-1.5); ALKALINE PHOSPHATASE 95 IU/L (46-116); ANION GAP 7 (8-16); ASPARTATE AMINO TRANSFERASE 18 U/L (10-37); BILIRUBIN,TOTAL 0.3 MG/DL (0.1-1.0); BLOOD UREA NITROGEN 33 MG/DL (7-18); BUN/CREATININE RATIO 24.4 (5.4-32.0); CALCIUM 8.7 MG/DL (8.5-10.1); CHLORIDE 97 MMOL/L (99-107); CREATININE 1.35 MG/DL (0.60-1.10); GLUCOSE 140 MG/DL (70-104); SODIUM 132 MMOL/L (135-145); TOTAL CARBON DIOXIDE 28.3 MMOL/L (24-32); TOTAL PROTEIN 7.3 G/DL (6.4-8.2); eGFR 53 ML/MIN
--- NOTE | 2019-11-07 06:33 | NUR ---
Received report from Julissa YE
[2019-11-07] MEDS: aspirin 81mg tablet.DR PO SCH (08:22)
[2019-11-07] MEDS: lactobacillus rhamnosus 10,000 MMU CELLS/CAPSULE PEG SCH ×2 (08:22→21:07)
[2019-11-07] MEDS: lisinopril 20mg tablet PEG SCH (08:23)
[2019-11-07] MEDS: enoxaparin 40mg/0.4ml syringe SUBCUT SCH (08:40)
[2019-11-07] MEDS: piperacillin/tazo 3.375gm/50ml 50 ML IV SCH ×2 (08:42→16:52)
[2019-11-07] MEDS: levoTHYROXINE 25mcg tablet PEG SCH (08:42)
[2019-11-07] MEDS: pantoprazole 40 MG vial IV SCH ×2 (08:48→21:21)
[2019-11-07] MEDS: furosemide 20 MG/2 ML vial IV SCH (08:48)
[2019-11-07 10:00] VITALS: BP 145/79
[2019-11-07 18:00] VITALS: BP 122/76
[2019-11-07] MEDS: Melatonin 3mg tablet PO SCH (21:07)
[2019-11-07] MEDS: atorvastatin 20mg tablet PEG SCH (21:08)
[2019-11-07 22:00] VITALS: BP 105/71
[2019-11-08] MEDS: piperacillin/tazo 3.375gm/50ml 50 ML IV SCH ×3 (00:17→17:17)
[2019-11-08] MEDS: insulin regular, human U-100 3ml vial - multi-dose SQ SCH ×3 (02:38→20:00)
[2019-11-08] MEDS: ipratropium/albuterol 3ml nebule NEB SCH ×6 (02:59→23:52)
[2019-11-08 06:00] VITALS: BP 113/72
[2019-11-08 06:27] LABS: BASOPHILS # (AUTO) 0.1 X10'3 (0-0.2); BASOPHILS % (AUTO) 1.1 % (0-1); EOSINOPHILS # (AUTO) 0.1 X10'3 (0-0.9); EOSINOPHILS % (AUTO) 2.6 % (0-6); HEMATOCRIT 36.8 % (42.0-52.0); HEMOGLOBIN 12.8 g/dl (14.0-17.9); LYMPHOCYTES # (AUTO) 0.8 X10'3 (1.1-4.8); LYMPHOCYTES % (AUTO) 16.9 % (21-51); MEAN CORPUSCULAR HEMOGLOBIN 32.4 PG (27.0-31.0); MEAN CORPUSCULAR HGB CONC 34.7 g/dL (33.0-36.5); MEAN CORPUSCULAR VOLUME 93.1 FL (78-98); MONOCYTES # (AUTO) 0.6 X10'3 (0-0.9); NEUTROPHILS # (AUTO) 3.4 X10'3 (1.8-7.7); NEUTROPHILS % (AUTO) 67.4 % (42-75); PLATELET COUNT 340 X10'3 (140-440); RED BLOOD COUNT 3.95 X10'6 (4.70-6.10); RED CELL DISTRIBUTION WIDTH 13.4 % (11.5-14.5)
--- NOTE | 2019-11-08 06:35 | NUR ---
Patient report taken from RN and assumed patient care. Gavin Student Nurse
--- NOTE | 2019-11-08 06:44 | NUR ---
received report from tabby YE
[2019-11-08 07:01] LABS: ALANINE AMINOTRANSFERASE 28 U/L (12-78); ALBUMIN 2.7 G/DL (3.4-5.0); ALBUMIN/GLOBULIN RATIO 0.6 (1.1-1.5); ALKALINE PHOSPHATASE 98 IU/L (46-116); ANION GAP 7 (8-16); ASPARTATE AMINO TRANSFERASE 20 U/L (10-37); BILIRUBIN,TOTAL 0.3 MG/DL (0.1-1.0); BLOOD UREA NITROGEN 31 MG/DL (7-18); BUN/CREATININE RATIO 23.7 (5.4-32.0); CALCIUM 9.3 MG/DL (8.5-10.1); CHLORIDE 99 MMOL/L (99-107); CREATININE 1.31 MG/DL (0.60-1.10); GLUCOSE 157 MG/DL (70-104); POTASSIUM 4.3 MMOL/L (3.5-5.1); SODIUM 133 MMOL/L (135-145); TOTAL CARBON DIOXIDE 26.9 MMOL/L (24-32); TOTAL PROTEIN 7.6 G/DL (6.4-8.2); eGFR 55 ML/MIN
[2019-11-08] MEDS: pantoprazole 40 MG vial IV SCH ×2 (08:02→20:14)
[2019-11-08] MEDS: furosemide 20 MG/2 ML vial IV SCH (08:03)
[2019-11-08] MEDS: enoxaparin 40mg/0.4ml syringe SUBCUT SCH (08:03)
[2019-11-08] MEDS: levoTHYROXINE 25mcg tablet PEG SCH (08:03)
[2019-11-08] MEDS: lactobacillus rhamnosus 10,000 MMU CELLS/CAPSULE PEG SCH ×2 (08:03→20:13)
[2019-11-08] MEDS: aspirin 81mg tablet.DR PO SCH (08:04)
[2019-11-08] MEDS: lisinopril 20mg tablet PEG SCH (08:04)
[2019-11-08 10:00] VITALS: BP 116/41
[2019-11-08 18:00] VITALS: BP 132/67
[2019-11-08] MEDS: Melatonin 3mg tablet PO SCH (20:13)
[2019-11-08] MEDS: atorvastatin 20mg tablet PEG SCH (20:13)
[2019-11-08 22:00] VITALS: BP 103/60
[2019-11-09] MEDS: piperacillin/tazo 3.375gm/50ml 50 ML IV SCH ×4 (00:56→23:25)
[2019-11-09] MEDS: insulin regular, human U-100 3ml vial - multi-dose SQ SCH ×4 (02:09→20:09)
[2019-11-09] MEDS: acetaminophen 325mg tablet PEG PRN (02:12)
[2019-11-09] MEDS: ipratropium/albuterol 3ml nebule NEB SCH ×6 (03:39→23:53)
[2019-11-09 06:18] LABS: BASOPHILS # (AUTO) 0.1 X10'3 (0-0.2); BASOPHILS % (AUTO) 1.3 % (0-1); EOSINOPHILS # (AUTO) 0.1 X10'3 (0-0.9); EOSINOPHILS % (AUTO) 2.9 % (0-6); HEMATOCRIT 35.3 % (42.0-52.0); HEMOGLOBIN 12.1 g/dl (14.0-17.9); LYMPHOCYTES # (AUTO) 0.9 X10'3 (1.1-4.8); LYMPHOCYTES % (AUTO) 18.7 % (21-51); MEAN CORPUSCULAR HGB CONC 34.4 g/dL (33.0-36.5); MEAN PLATELET VOLUME 8.1 FL (7.4-10.4); MONOCYTES # (AUTO) 0.6 X10'3 (0-0.9); MONOCYTES % (AUTO) 12.5 % (2-12); NEUTROPHILS # (AUTO) 3.3 X10'3 (1.8-7.7); NEUTROPHILS % (AUTO) 64.6 % (42-75); PLATELET COUNT 332 X10'3 (140-440); RED BLOOD COUNT 3.79 X10'6 (4.70-6.10); RED CELL DISTRIBUTION WIDTH 13.3 % (11.5-14.5)
[2019-11-09 06:26] LABS: ALANINE AMINOTRANSFERASE 27 U/L (12-78); ALBUMIN 2.6 G/DL (3.4-5.0); ALBUMIN/GLOBULIN RATIO 0.5 (1.1-1.5); ALKALINE PHOSPHATASE 99 IU/L (46-116); ANION GAP 4 (8-16); ASPARTATE AMINO TRANSFERASE 21 U/L (10-37); BILIRUBIN,TOTAL 0.3 MG/DL (0.1-1.0); BLOOD UREA NITROGEN 30 MG/DL (7-18); BUN/CREATININE RATIO 22.6 (5.4-32.0); CALCIUM 9.1 MG/DL (8.5-10.1); CHLORIDE 100 MMOL/L (99-107); CREATININE 1.33 MG/DL (0.60-1.10); GLUCOSE 143 MG/DL (70-104); SODIUM 134 MMOL/L (135-145); TOTAL CARBON DIOXIDE 29.7 MMOL/L (24-32); TOTAL PROTEIN 7.4 G/DL (6.4-8.2); eGFR 54 ML/MIN
--- NOTE | 2019-11-09 06:31 | NUR ---
Problems reprioritized. Patient report given, questions answered & plan of care reviewed with EPHRAIM FLEMING.
--- NOTE | 2019-11-09 06:59 | NUR ---
Patient in room ORTHO 4008. I have received report from EPHARIM Shane and had the opportunity to ask questions and assume patient care.
[2019-11-09] MEDS: lisinopril 20mg tablet PEG SCH (08:00)
[2019-11-09] MEDS: levoTHYROXINE 25mcg tablet PEG SCH (08:59)
[2019-11-09] MEDS: aspirin 81mg tablet.DR PO SCH (08:59)
[2019-11-09] MEDS: lactobacillus rhamnosus 10,000 MMU CELLS/CAPSULE PEG SCH ×2 (09:00→20:06)
[2019-11-09] MEDS: enoxaparin 40mg/0.4ml syringe SUBCUT SCH (09:00)
[2019-11-09] MEDS: pantoprazole 40 MG vial IV SCH ×2 (09:00→20:06)
[2019-11-09] MEDS: furosemide 20 MG/2 ML vial IV SCH (09:02)
--- NOTE | 2019-11-09 14:54 | NUR ---
TF Consult: Pt TF decreased to 65ml/hr per new order 11/06 r/t intolerance determined by GRV's per RN report today. Pt has never had elevated GRV highest in low 100's and has been tolerating EN this admit. RD d/w RN regarding returning EN to prior goal given optimal EN recs to meet needs from RD if MD agreeable. Pt to advance to 75ml/hr today. LBM 11/07. Will decrease free water recs given Na 134 and continue to monitor for EN tolerance. Rec: 1. Continuous TF via PEG using Glucerna 1.2 at 75ml/hr goal; to provide 1800ml total volume, 1458ml water, 2160kcals, and 108g protein. Initiate at 75ml/hr since previously tolerating at 85ml/hr. 2. additional water flush 100ml Q4H; Na 134 recommendations as appropriate 3. PALB Q /; daily wts 4. HOSPICE [employer]IC THER[employer]IST BSS prior to PO; IF to advance to PO diet HOME PEG RECS: 1) If continuous: Glucerna 1.2 or equivalent with goal rate of 75 mL/hr with 100 mL water flushes Q4H 2) If bolus: Glucerna 1.5 or equivalent to begin at 120 mL bolus and advance by 50 mL each bolus as tolerated to goal of 320 mL bolus QID with 75 mL water flushes before and after each bolus feed 3) If bolus; additional 250ml free water daily 4) Outpatient RD to titrate to goal rate and make adjustments as needed based on patient's estimated nutrient needs Addendum: 11/09/19 at [address] Amended: Links added.
[2019-11-09 18:00] VITALS: BP 117/77
--- NOTE | 2019-11-09 18:31 | NUR ---
Patient in room [facility]TH[facility] 4008. I have received report from EPHRAIM FLEMING and had the opportunity to ask questions and assume patient care.
--- NOTE | 2019-11-09 18:34 | NUR ---
Problems reprioritized. Patient report given, questions answered & plan of care reviewed with EPHRAIM Oakley.
[2019-11-09] MEDS: Melatonin 3mg tablet PO SCH (20:06)
[2019-11-09] MEDS: atorvastatin 20mg tablet PEG SCH (20:06)
[2019-11-09 22:00] VITALS: BP 114/53
[2019-11-10] MEDS: ipratropium/albuterol 3ml nebule NEB SCH ×5 (04:03→20:23)
--- NOTE | 2019-11-10 06:07 | NUR ---
Problems reprioritized. Patient report given, questions answered & plan of care reviewed with EPHRAIM MARTÍNEZ.
[2019-11-10 06:10] VITALS: BP 115/65
--- NOTE | 2019-11-10 06:35 | NUR ---
Patient in room [facility]TH[facility] 4008. I have received report from Constance YE and had the opportunity to ask questions and assume patient care.
[2019-11-10] MEDS: insulin regular, human U-100 3ml vial - multi-dose SQ SCH ×3 (08:43→19:45)
[2019-11-10] MEDS: levoTHYROXINE 25mcg tablet PEG SCH (08:46)
[2019-11-10] MEDS: piperacillin/tazo 3.375gm/50ml 50 ML IV SCH ×3 (08:46→23:20)
[2019-11-10] MEDS: furosemide 20 MG/2 ML vial IV SCH ×2 (08:46→20:02)
[2019-11-10] MEDS: lactobacillus rhamnosus 10,000 MMU CELLS/CAPSULE PEG SCH ×2 (08:46→19:59)
[2019-11-10] MEDS: pantoprazole 40 MG vial IV SCH ×2 (08:46→20:02)
[2019-11-10] MEDS: aspirin 81mg tablet.DR PO SCH (08:49)
[2019-11-10] MEDS: enoxaparin 40mg/0.4ml syringe SUBCUT SCH (08:49)
[2019-11-10] MEDS: lisinopril 20mg tablet PEG SCH (08:51)
[2019-11-10 10:00] VITALS: BP 142/86
[2019-11-10] MEDS ORDERED: magnesium hydroxide 30ml (MOM) UD suspension PEG PRN (11:08)
--- NOTE | 2019-11-10 11:45 | NUR ---
I let DR. Guerrero know patient said he was short of breath and satting 02 at mid to upper 80's from to to [address] Guerrero ordered lasix 40 mg IV and a chest x-ray and increased RT treatments. Patient 02 sats began improving fairly soon with in a half hour up to 96 and 98 percent on 2L 02.
[2019-11-10] MEDS ORDERED: furosemide 40mg/4ml inj IV ONE (11:50)
[2019-11-10 18:00] VITALS: BP 107/72
--- NOTE | 2019-11-10 18:26 | NUR ---
Patient report given to Cele YE
[2019-11-10] MEDS: Melatonin 3mg tablet PO SCH (19:59)
[2019-11-10] MEDS: atorvastatin 20mg tablet PEG SCH (19:59)
[2019-11-10] MEDS: budesonide 0.5mg/2ml UD nebule IH SCH (20:23)
[2019-11-10 22:00] VITALS: BP 117/70
[2019-11-11] MEDS: ipratropium/albuterol 3ml nebule NEB SCH ×7 (00:08→23:07)
[2019-11-11] MEDS: insulin regular, human U-100 3ml vial - multi-dose SQ SCH ×4 (01:53→20:35)
[2019-11-11 06:00] VITALS: BP 117/77
--- NOTE | 2019-11-11 06:10 | NUR ---
received report from christine bond
--- NOTE | 2019-11-11 06:22 | NUR ---
Problems reprioritized. Patient report given, questions answered & plan of care reviewed with EPHRAIM LEIGH.
[2019-11-11] MEDS: lisinopril 20mg tablet PEG SCH (08:03)
[2019-11-11] MEDS: aspirin 81mg tab.chew PEG SCH (08:03)
[2019-11-11] MEDS: levoTHYROXINE 25mcg tablet PEG SCH (08:03)
[2019-11-11] MEDS: lactobacillus rhamnosus 10,000 MMU CELLS/CAPSULE PEG SCH ×2 (08:03→20:22)
[2019-11-11] MEDS: budesonide 0.5mg/2ml UD nebule IH SCH ×2 (08:08→18:55)
[2019-11-11] MEDS: enoxaparin 40mg/0.4ml syringe SUBCUT SCH (08:08)
[2019-11-11] MEDS: pantoprazole 40 MG vial IV SCH ×2 (08:19→20:22)
[2019-11-11] MEDS: furosemide 20 MG/2 ML vial IV SCH ×3 (08:21→20:24)
[2019-11-11] MEDS: piperacillin/tazo 3.375gm/50ml 50 ML IV SCH ×2 (08:24→16:01)
[2019-11-11 10:00] VITALS: BP 116/82
[2019-11-11 10:46] LABS: BASOPHILS % (AUTO) 0.7 % (0-1); EOSINOPHILS # (AUTO) 0.1 X10'3 (0-0.9); EOSINOPHILS % (AUTO) 1.7 % (0-6); HEMATOCRIT 39.4 % (42.0-52.0); HEMOGLOBIN 13.3 g/dl (14.0-17.9); LYMPHOCYTES # (AUTO) 0.9 X10'3 (1.1-4.8); LYMPHOCYTES % (AUTO) 14.2 % (21-51); MEAN CORPUSCULAR HEMOGLOBIN 31.6 PG (27.0-31.0); MEAN CORPUSCULAR HGB CONC 33.6 g/dL (33.0-36.5); MEAN CORPUSCULAR VOLUME 93.8 FL (78-98); MEAN PLATELET VOLUME 8.2 FL (7.4-10.4); MONOCYTES # (AUTO) 0.5 X10'3 (0-0.9); MONOCYTES % (AUTO) 7.4 % (2-12); NEUTROPHILS # (AUTO) 4.9 X10'3 (1.8-7.7); PLATELET COUNT 334 X10'3 (140-440); RED CELL DISTRIBUTION WIDTH 13.6 % (11.5-14.5); WHITE BLOOD COUNT 6.4 X10'3 (4.5-11.0)
[2019-11-11 10:57] LABS: ALANINE AMINOTRANSFERASE 33 U/L (12-78); ALBUMIN 3.1 G/DL (3.4-5.0); ALBUMIN/GLOBULIN RATIO 0.6 (1.1-1.5); ALKALINE PHOSPHATASE 99 IU/L (46-116); ANION GAP 6 (8-16); ASPARTATE AMINO TRANSFERASE 24 U/L (10-37); BILIRUBIN,TOTAL 0.4 MG/DL (0.1-1.0); BLOOD UREA NITROGEN 37 MG/DL (7-18); BUN/CREATININE RATIO 27.4 (5.4-32.0); CALCIUM 9.4 MG/DL (8.5-10.1); CHLORIDE 97 MMOL/L (99-107); CREATININE 1.35 MG/DL (0.60-1.10); GLUCOSE 221 MG/DL (70-104); POTASSIUM 3.7 MMOL/L (3.5-5.1); SODIUM 134 MMOL/L (135-145); TOTAL PROTEIN 8.1 G/DL (6.4-8.2); eGFR 53 ML/MIN
--- NOTE | 2019-11-11 17:17 | NUR ---
gave report to [facility] nurse b/c [facility] nurse is screening pt for possible acceptance to facility
[2019-11-11 18:00] VITALS: BP 123/71
--- NOTE | 2019-11-11 18:20 | NUR ---
gave report to christine marshall
--- NOTE | 2019-11-11 18:46 | NUR ---
Patient in room [facility]TH[facility] 4008. I have received report from Karuna YE and had the opportunity to ask questions and assume patient care.
[2019-11-11] MEDS: atorvastatin 20mg tablet PEG SCH (20:22)
[2019-11-11] MEDS: Melatonin 3mg tablet PO SCH (20:22)
[2019-11-11 22:00] VITALS: BP 109/69
--- NOTE | 2019-11-11 22:17 | NUR ---
Started new container of tube feeding as ordered ,started since previous container finished.
[2019-11-12] MEDS: insulin regular, human U-100 3ml vial - multi-dose SQ SCH ×4 (02:13→20:26)
[2019-11-12] MEDS: ipratropium/albuterol 3ml nebule NEB SCH ×6 (02:40→23:49)
[2019-11-12 06:00] VITALS: BP 116/60
[2019-11-12 06:11] LABS: BASOPHILS % (AUTO) 0.7 % (0-1); EOSINOPHILS # (AUTO) 0.2 X10'3 (0-0.9); HEMOGLOBIN 12.7 g/dl (14.0-17.9); MONOCYTES # (AUTO) 0.7 X10'3 (0-0.9); NEUTROPHILS # (AUTO) 4.9 X10'3 (1.8-7.7); PLATELET COUNT 303 X10'3 (140-440); WHITE BLOOD COUNT 7.1 X10'3 (4.5-11.0)
[2019-11-12 06:13] LABS: EOSINOPHILS % (AUTO) 3.2 % (0-6); LYMPHOCYTES # (AUTO) 1.2 X10'3 (1.1-4.8); LYMPHOCYTES % (AUTO) 17.4 % (21-51); MEAN CORPUSCULAR HEMOGLOBIN 31.3 PG (27.0-31.0); MEAN CORPUSCULAR HGB CONC 33.5 g/dL (33.0-36.5); MEAN CORPUSCULAR VOLUME 93.6 FL (78-98); MONOCYTES % (AUTO) 9.6 % (2-12); NEUTROPHILS % (AUTO) 69.1 % (42-75); RED BLOOD COUNT 4.06 X10'6 (4.70-6.10); RED CELL DISTRIBUTION WIDTH 13.8 % (11.5-14.5)
--- NOTE | 2019-11-12 06:29 | NUR ---
Problems reprioritized. Patient report given, questions answered & plan of care reviewed with Raji YE.
[2019-11-12 06:31] LABS: ALANINE AMINOTRANSFERASE 29 U/L (12-78); ALBUMIN/GLOBULIN RATIO 0.6 (1.1-1.5); ALKALINE PHOSPHATASE 104 IU/L (46-116); ANION GAP 7 (8-16); ASPARTATE AMINO TRANSFERASE 23 U/L (10-37); BILIRUBIN,TOTAL 0.3 MG/DL (0.1-1.0); BLOOD UREA NITROGEN 38 MG/DL (7-18); BUN/CREATININE RATIO 30.4 (5.4-32.0); CALCIUM 9.3 MG/DL (8.5-10.1); CHLORIDE 97 MMOL/L (99-107); CREATININE 1.25 MG/DL (0.60-1.10); GLUCOSE 177 MG/DL (70-104); POTASSIUM 3.9 MMOL/L (3.5-5.1); SODIUM 134 MMOL/L (135-145); TOTAL CARBON DIOXIDE 30.2 MMOL/L (24-32); TOTAL PROTEIN 7.9 G/DL (6.4-8.2); eGFR 58 ML/MIN
--- NOTE | 2019-11-12 06:31 | NUR ---
Patient in room [facility]TH[facility] 4007. I have received report from [facility] and had the opportunity to ask questions and assume patient care.
[2019-11-12] MEDS: budesonide 0.5mg/2ml UD nebule IH SCH ×2 (07:02→19:47)
[2019-11-12] MEDS: pantoprazole 40 MG vial IV SCH ×2 (08:16→20:13)
[2019-11-12] MEDS: furosemide 20 MG/2 ML vial IV SCH ×2 (08:16→20:15)
[2019-11-12] MEDS: enoxaparin 40mg/0.4ml syringe SUBCUT SCH (08:17)
[2019-11-12] MEDS: lactobacillus rhamnosus 10,000 MMU CELLS/CAPSULE PEG SCH ×2 (08:23→20:15)
[2019-11-12] MEDS: aspirin 81mg tab.chew PEG SCH (08:23)
[2019-11-12] MEDS: clopidogrel 75mg tablet PO SCH (08:23)
[2019-11-12] MEDS: levoTHYROXINE 25mcg tablet PEG SCH (08:23)
[2019-11-12] MEDS: lisinopril 20mg tablet PEG SCH (08:24)
[2019-11-12 10:00] VITALS: BP 117/75
[2019-11-12 18:00] VITALS: BP 103/66
--- NOTE | 2019-11-12 18:24 | NUR ---
Problems reprioritized. Patient report given, questions answered & plan of care reviewed with Nohemy.
--- NOTE | 2019-11-12 18:38 | NUR ---
Patient in room ORTH[facility] 4008. I have received report from Raji YE and had the opportunity to ask questions and assume patient care.
[2019-11-12] MEDS: Melatonin 3mg tablet PO SCH (20:15)
[2019-11-12] MEDS: atorvastatin 20mg tablet PEG SCH (20:15)
[2019-11-12 22:00] VITALS: BP 105/67
[2019-11-13] MEDS: insulin regular, human U-100 3ml vial - multi-dose SQ SCH ×2 (02:00→08:13)
[2019-11-13] MEDS: ipratropium/albuterol 3ml nebule NEB SCH ×2 (03:06→07:05)
[2019-11-13 05:43] LABS: ALANINE AMINOTRANSFERASE 30 U/L (12-78); ALBUMIN/GLOBULIN RATIO 0.6 (1.1-1.5); ALKALINE PHOSPHATASE 101 IU/L (46-116); ANION GAP 5 (8-16); ASPARTATE AMINO TRANSFERASE 21 U/L (10-37); BILIRUBIN,TOTAL 0.3 MG/DL (0.1-1.0); BLOOD UREA NITROGEN 37 MG/DL (7-18); BUN/CREATININE RATIO 30.8 (5.4-32.0); CALCIUM 9.4 MG/DL (8.5-10.1); CHLORIDE 99 MMOL/L (99-107); GLUCOSE 124 MG/DL (70-104); POTASSIUM 3.8 MMOL/L (3.5-5.1); SODIUM 135 MMOL/L (135-145); TOTAL PROTEIN 7.7 G/DL (6.4-8.2); eGFR 60 ML/MIN
[2019-11-13 05:56] LABS: BASOPHILS # (AUTO) 0.1 X10'3 (0-0.2); BASOPHILS % (AUTO) 1.1 % (0-1); EOSINOPHILS # (AUTO) 0.2 X10'3 (0-0.9); EOSINOPHILS % (AUTO) 3.7 % (0-6); HEMATOCRIT 38.9 % (42.0-52.0); LYMPHOCYTES # (AUTO) 0.9 X10'3 (1.1-4.8); LYMPHOCYTES % (AUTO) 17.8 % (21-51); MEAN CORPUSCULAR HEMOGLOBIN 31.4 PG (27.0-31.0); MEAN CORPUSCULAR HGB CONC 33.5 g/dL (33.0-36.5); MEAN CORPUSCULAR VOLUME 93.6 FL (78-98); MEAN PLATELET VOLUME 8.1 FL (7.4-10.4); MONOCYTES # (AUTO) 0.6 X10'3 (0-0.9); MONOCYTES % (AUTO) 11.3 % (2-12); NEUTROPHILS # (AUTO) 3.4 X10'3 (1.8-7.7); NEUTROPHILS % (AUTO) 66.1 % (42-75); PLATELET COUNT 287 X10'3 (140-440); RED BLOOD COUNT 4.15 X10'6 (4.70-6.10); RED CELL DISTRIBUTION WIDTH 13.9 % (11.5-14.5); WHITE BLOOD COUNT 5.2 X10'3 (4.5-11.0)
[2019-11-13 06:00] VITALS: BP 119/74
--- NOTE | 2019-11-13 06:14 | NUR ---
Problems reprioritized. Patient report given, questions answered & plan of care reviewed with Raji YE.
--- NOTE | 2019-11-13 06:25 | NUR ---
Patient in room ORTHO 4007. I have received report from [facility] and had the opportunity to ask questions and assume patient care.
[2019-11-13] MEDS: budesonide 0.5mg/2ml UD nebule IH SCH (07:05)
[2019-11-13] MEDS: clopidogrel 75mg tablet PO SCH (07:52)
[2019-11-13] MEDS: levoTHYROXINE 25mcg tablet PEG SCH (07:52)
[2019-11-13] MEDS: lactobacillus rhamnosus 10,000 MMU CELLS/CAPSULE PEG SCH (07:52)
[2019-11-13] MEDS: aspirin 81mg tab.chew PEG SCH (07:52)
[2019-11-13] MEDS: pantoprazole 40 MG vial IV SCH (07:53)
[2019-11-13] MEDS: enoxaparin 40mg/0.4ml syringe SUBCUT SCH (07:53)
[2019-11-13] MEDS: lisinopril 20mg tablet PEG SCH (07:53)
[2019-11-13] MEDS: furosemide 20 MG/2 ML vial IV SCH (07:53)
[2019-11-13 10:00] VITALS: BP 117/69
--- NOTE | 2019-11-13 10:50 | NUR ---
Problems reprioritized. Patient report given, questions answered & plan of care reviewed with Roopa from [facility].
--- NOTE | 2019-11-13 11:09 | NUR ---
Safe DC transfer with [facility] personnel. All personal items with patient.
== END 2019-11-13 11:20 | disposition short-term general hospital (02) | DRG 64 ==
LOC: ORTHO 4S 20:30 → UNDODISIN 10-31 13:00 → ORTHO 4S 11-07 16:54
PROVIDERS: ADMIT Family Medicine; ATTEND Family Medicine
PROC: 0DH63UZ Insertion of Feeding Device into Stomach, Percutaneous Approach (ICD-10-PCS; principal; 2019-10-28)
DX: I63.9 Cerebral infarction, unspecified (principal); I26.99 Other pulmonary embolism without acute cor pulmonale; J69.0 Pneumonitis due to inhalation of food and vomit; J96.00 Acute respiratory failure, unspecified whether with hypoxia or hypercapnia; E87.1 Hypo-osmolality and hyponatremia; G81.04 Flaccid hemiplegia affecting left nondominant side; G82.20 Paraplegia, unspecified; E03.9 Hypothyroidism, unspecified; E11.9 Type 2 diabetes mellitus without complications; I10 Essential (primary) hypertension; R13.10 Dysphagia, unspecified; Z79.01 Long term (current) use of anticoagulants; Z79.84 Long term (current) use of oral hypoglycemic drugs; Z20.828 Contact with and (suspected) exposure to other viral communicable diseases
CPT/HCPCS: 36415; 36600; 43246; 71045; 71260; 71270; 74177; 80048; 80053; 82803; 82948; 83036; 83605; 84134; 84145; 85018; 85025; 87040; 87081; 87635; 92507; 92508; 92616; 94640; 94667; 94760; 97110; 97112; 97116; 97161; 97530; 97535; 99152; 99153; 99285; A4620; B4087; C9113; G0378; J0690; J0696; J1650; J1815; J1940; J2250; J2270; J2543; J2765; J3010; J3490; J7030; J7040; J7626; Q9967